=== PATIENT | male | born 1970 | race Caucasian/White ===

== ENCOUNTER → 2018-03-21 | Outpatient (CLI) | payer MEDICARE, OTHER ==
--- NOTE | 2018-03-21 13:22 | RAD ---
EXAM DESCRIPTION: Knee,Right 2 or More Views CLINICAL HISTORY: 47 years Male, PAIN IN RIGHT KNEE TECHNIQUE: 4 views of the right knee were performed. COMPARISON: None available. FINDINGS: The visualized bones appear well mineralized. No acute fracture or dislocation. Small suprapatellar joint effusion is noted. Mild medial tibiofemoral joint space narrowing. The soft tissues appear grossly unremarkable. IMPRESSION: Mild medial tibiofemoral joint space narrowing. Small suprapatellar joint effusion. Electronically signed by: Nancy Sharif MD 03/21/2018 1:20 PM CDT
--- NOTE | 2018-03-21 13:23 | RAD ---
EXAM DESCRIPTION: Pelvis CLINICAL HISTORY: 47 years Male, PAIN IN RIGHT HIP COMPARISON: None. TECHNIQUE: AP radiograph of the pelvis was performed. FINDINGS: The pelvic ring appears grossly intact on this single AP radiograph. No acute fracture or dislocation. Bilateral sacroiliac joints appear normal. Moderate osteoarthritis is noted in the left hip. The visualized lumbo-sacral spine demonstrates mild degenerative changes. IMPRESSION: Moderate left hip osteoarthritis. Electronically signed by: Nancy Sharif MD 03/21/2018 1:21 PM CDT
== END ==
LOC: RAD 09:00
PROVIDERS: ATTEND Orthopaedic Surgery
DX: M25.561 Pain in right knee (principal); M25.551 Pain in right hip; M16.12 Unilateral primary osteoarthritis, left hip; M25.461 Effusion, right knee

== ENCOUNTER 2020-03-08 04:19 | Emergency (ER) | payer MEDICARE, MEDICAID, OTHER ==
[2020-03-08 04:31] VITALS: TEMP 99
[2020-03-08] MEDS ORDERED: IBUPROFEN 200 MG TAB ONE ×2 (04:38→04:40)
[2020-03-08] MEDS ORDERED: IBUPROFEN 200 MG TAB PO ONE (04:38)
--- NOTE | 2020-03-08 04:42 | ED.PDOC ---
History of Present Illness - General Chief Complaint: General Stated Complaint: teeth hurt "bad", feels weak Time Seen by Provider: 03/08/20 04:26 Source: patient, other Exam Limitations: clinical condition - History of Present Illness Initial Comments: The patient is a 49-year-old male with chronic communication limitations presenting to the emergency room due to dental pain of what he reports a week's duration. Apparently the patient was written for clindamycin and ibuprofen. He is out of the ibuprofen and his teeth are starting to hurt some more. Patient does have several dental caries and at least one fractured tooth. No obvious dental abscess formation. He does have some mild cervical lymphadenopathy. No evidence of any clinical distress. There was some initial confusion as to whether he was here for high blood sugar however Accu-Chek with EMS was 180. The patient reports he does not check his blood sugars. He does take metformin. He is not having any abdominal pain or shortness of breath. No chest pain. No new confusion. I did discuss the patient with his nurse on the phone, whose name is Yumiko. She confirms that he had been on clindamycin and ibuprofen. She confirmed that he is allergic to Tylenol. Timing/Duration: 1 week Severity: moderate Improving Factors: nothing Worsening Factors: eating Associated Symptoms: denies symptoms Allergies/Adverse Reactions: Allergies Acetaminophen Allergy (Verified 03/08/20 04:29) Penicillin G Allergy (Verified 03/08/20 04:29) Home Medications: Ambulatory Orders Benztropine Mesylate [Cogentin] 1 mg PO TID 06/09/15 Pravastatin Sodium [Pravachol] 40 mg PO BEDTIME 06/09/15 Prazosin HCl [Prazosin Hydrochloride] 2 mg PO TID 06/09/15 Quetiapine Fumarate [Seroquel] 400 mg PO DAILY 06/09/15 Risperidone 1 mg PO BID 06/09/15 Ondansetron [Zofran Odt] 8 mg PO BID PRN #5 tab 06/17/15 ARIPiprazole [Abilify] 10 mg PO DAILY 03/06/16 Albuterol Inhaler [Ventolin Hfa Inhaler] 2 puff INH Q4HR 03/06/16 Benzonatate 200 mg PO TID 03/06/16 Fluticasone Propionate (Nasal) [Flonase] 2 puff NA DAILY 03/06/16 Ketoconazole (Topical) [Ketoconazole] 2 % EX ONCE 03/06/16 Magnesium Oxide 400 mg PO PRN 03/06/16 Meloxicam [Mobic] 15 mg PO DAILY 03/06/16 Metformin HCl [Metformin HCl ER] 500 mg PO DAILY 03/06/16 Simvastatin 40 mg PO DAILY 03/06/16 Ibuprofen 400 mg PO Q8HR PRN #20 tab 03/08/20 Review of Systems - Review of Systems Constitutional: States: no symptoms reported EENTM: States: see HPI Respiratory: States: no symptoms reported Cardiology: States: no symptoms reported Gastrointestinal/Abdominal: States: no symptoms reported Genitourinary: States: no symptoms reported Musculoskeletal: States: no symptoms reported Skin: States: no symptoms reported Neurological: States: see HPI Endocrine: States: no symptoms reported All other Systems: No Change from Baseline Past Medical History (General) - Patient Medical History Hx Seizures: - unknown Hx Stroke: - unknown Hx Dementia: - unknown Hx Asthma: - unknown Hx of COPD: - unknown Hx Congestive Heart Failure: - unknown Hx Hypertension: - unknown Hx Thyroid Disease: - unknown Hx Diabetes: Yes - takes metformin per EMS Hx Gastroesophageal Reflux: - unknown Hx Renal Disease: - unknown Hx Cancer: - unknown Hx of HIV: - unknown Hx Hepatitis C: - unknown Hx MRSA: - unknown Surgical History: noncontributory - Vaccination History Hx Tetanus, Diphtheria Vaccination: - unknown Hx Influenza Vaccination: - unknown Hx Pneumococcal Vaccination: - unknown Immunizations Up to Date: - unknown - Social History Hx Alcohol Use: - unknown Hx Substance Use: - unknown Hx Substance Use Treatment: - unknown Hx Depression: - unknown Family Medical History - Family History Father Living Status: Still Living Hx Family Diabetes: Yes Physical Exam - Physical Exam General Appearance: Alert, Comfortable, No apparent distress Eye Exam: bilateral normal - He does require glasses. Ears, Nose, Throat: hearing grossly normal, other - See history of present illness. No obvious abscess. No facial tenderness. No swelling. Jaw occlusion appears fairly symmetrical. No pain over bilateral TMJ. No evidence of acute trauma. Neck: non-tender, supple Respiratory: lungs clear, normal breath sounds, no respiratory distress, no accessory muscle use Cardiovascular/Chest: normal peripheral pulses, other - Regular rate Peripheral Pulses: radial,right: 2+, radial,left: 2+ Gastrointestinal/Abdominal: non tender - Mildly obese, soft Rectal Exam: deferred Back Exam: no vertebral tenderness Extremity: no pedal edema, no calf tenderness, normal capillary refill Neurologic: alert, normal mood/affect - Patient is apparently at his baseline mental status., oriented x 3 Skin Exam: normal color - Numerous tattoos Comments: Vital Signs - 24 hr 03/08/20 03/08/20 04:20 04:25 Temperature 99.0 F 99 F Pulse Rate [ 87 left] Pulse Rate [ 89 monitor] Respiratory 18 16 Rate Blood Pressure 129/66 [Left Arm] Blood Pressure 129/65 [left] O2 Sat by Pulse 98 97 Oximetry Progress - Progress Progress: 03/08/20 04:44 The patient is a 49-year-old male presented emergency room secondary to dental pain. He has apparently been out of his ibuprofen for about a day and his teeth are back to bothering him. No evidence of any grisel overt abscess formation. The patient has recently been on antibiotics for his teeth. The patient will be written for ibuprofen 3 times a day for the next week as needed. He obviously does need to follow-up with a dentist. Keep routine follow-up with his primary care doctor and his nursing care team. Blood sugar was very mildly elevated at 176 tonight. Blood sugars do need to be followed as an outpatient. ER warnings are given. [email or web address] [id number] Departure - Departure Clinical Impression: Pain due to dental caries Disposition: Discharge to Home or Self Care Condition: Fair Departure Forms: ED Discharge - Pt. Copy, Patient Portal Self Enrollment Diet: diabetic diet Activity: increase activity as tolerated Referrals: Matthew Dover MD [Primary Care Provider] - 1-2 Weeks Prescriptions: Ibuprofen 400 mg PO Q8HR PRN #20 tab PRN Reason: Moderate Pain Home Medications: Ambulatory Orders Benztropine Mesylate [Cogentin] 1 mg PO TID 06/09/15 Pravastatin Sodium [Pravachol] 40 mg PO BEDTIME 06/09/15 Prazosin HCl [Prazosin Hydrochloride] 2 mg PO TID 06/09/15 Quetiapine Fumarate [Seroquel] 400 mg PO DAILY 06/09/15 Risperidone 1 mg PO BID 06/09/15 Ondansetron [Zofran Odt] 8 mg PO BID PRN #5 tab 06/17/15 ARIPiprazole [Abilify] 10 mg PO DAILY 03/06/16 Albuterol Inhaler [Ventolin Hfa Inhaler] 2 puff INH Q4HR 03/06/16 Benzonatate 200 mg PO TID 03/06/16 Fluticasone Propionate (Nasal) [Flonase] 2 puff NA DAILY 03/06/16 Ketoconazole (Topical) [Ketoconazole] 2 % EX ONCE 03/06/16 Magnesium Oxide 400 mg PO PRN 03/06/16 Meloxicam [Mobic] 15 mg PO DAILY 03/06/16 Metformin HCl [Metformin HCl ER] 500 mg PO DAILY 03/06/16 Simvastatin 40 mg PO DAILY 03/06/16 Ibuprofen 400 mg PO Q8HR PRN #20 tab 03/08/20 Additional Instructions: The patient is a 49-year-old male presented emergency room secondary to dental pain. He has apparently been out of his ibuprofen for about a day and his teeth are back to bothering him. No evidence of any grisel overt abscess formation. The patient has recently been on antibiotics for his teeth. The patient will be written for ibuprofen 3 times a day for the next week as needed. He does need to take these with a little bit of food to prevent stomach upset. He obviously does need to follow-up with a dentist. Keep routine follow-up with his primary care doctor and his nursing care team. Blood sugar was very mildly elevated at 176 tonight. Blood sugars do need to be followed as an outpatient. ER warnings are given.
[2020-03-08 05:29] VITALS: BP 116/57; O2SAT 96
== END 2020-03-08 05:10 | disposition home or self-care (01) ==
LOC: ER 04:19
DX: K02.9 Dental caries, unspecified (principal); K08.89 Other specified disorders of teeth and supporting structures; E11.9 Type 2 diabetes mellitus without complications; Z79.899 Other long term (current) drug therapy

== ENCOUNTER 2020-05-29 21:01 | Emergency (ER) | payer MEDICARE, MEDICAID, OTHER ==
--- NOTE | 2020-05-29 21:02 | ED.PDOC ---
History of Present Illness - General Time Seen by Provider: 05/29/20 21:01 - History of Present Illness Initial Comments: 50 yo male was walking down stairs, misstep two steps before bottom and fell backwards and hit his head. unsure if he had LOC. Has special needs, lives alone, but has nursing care. denies dizziness prior to falling. states he hurts all over. Allergies/Adverse Reactions: Allergies Acetaminophen Allergy (Verified 03/08/20 04:29) Penicillin G Allergy (Verified 03/08/20 04:29) Home Medications: Ambulatory Orders Benztropine Mesylate [Cogentin] 1 mg PO TID 06/09/15 Pravastatin Sodium [Pravachol] 40 mg PO BEDTIME 06/09/15 Prazosin HCl [Prazosin Hydrochloride] 2 mg PO TID 06/09/15 Quetiapine Fumarate [Seroquel] 400 mg PO DAILY 06/09/15 Risperidone 1 mg PO BID 06/09/15 Ondansetron [Zofran Odt] 8 mg PO BID PRN #5 tab 06/17/15 ARIPiprazole [Abilify] 10 mg PO DAILY 03/06/16 Albuterol Inhaler [Ventolin Hfa Inhaler] 2 puff INH Q4HR 03/06/16 Benzonatate 200 mg PO TID 03/06/16 Fluticasone Propionate (Nasal) [Flonase] 2 puff NA DAILY 03/06/16 Ketoconazole (Topical) [Ketoconazole] 2 % EX ONCE 03/06/16 Magnesium Oxide 400 mg PO PRN 03/06/16 Meloxicam [Mobic] 15 mg PO DAILY 03/06/16 Metformin HCl [Metformin HCl ER] 500 mg PO DAILY 03/06/16 Simvastatin 40 mg PO DAILY 03/06/16 Ibuprofen 400 mg PO Q8HR PRN #20 tab 03/08/20 Ibuprofen 600 mg PO QID PRN #30 tab 05/29/20 Magnesium Oxide [Mag-Ox Tab] 400 mg PO DAILY PRN #14 tab 05/29/20 Review of Systems - Review of Systems Constitutional: Denies: fever, malaise, weakness EENTM: Denies: eye pain, blurred vision, ear discharge, throat pain, mouth pain Respiratory: States: short of breath. Denies: cough, stridor, wheezing Cardiology: Denies: chest pain, edema, palpitations, syncope Gastrointestinal/Abdominal: Denies: abdominal pain, constipation, diarrhea, n ausea, vomiting Genitourinary: Denies: dysuria, frequency Musculoskeletal: States: muscle pain, neck pain Skin: Denies: rash Neurological: States: headache. Denies: numbness, paresthesia, seizure, tingling, tremors, weakness Endocrine: Denies: unexplained weight gain, unexplained weight loss Hematologic/Lymphatic: Denies: easy bleeding, easy bruising Past Medical History (General) - Patient Medical History Hx Seizures: - unknown Hx Stroke: - unknown Hx Dementia: - unknown Hx Asthma: - unknown Hx of COPD: - unknown Hx Congestive Heart Failure: - unknown Hx Hypertension: - unknown Hx Thyroid Disease: - unknown Hx Diabetes: Yes - takes metformin per EMS Hx Gastroesophageal Reflux: - unknown Hx Renal Disease: - unknown Hx Cancer: - unknown Hx of HIV: - unknown Hx Hepatitis C: - unknown Hx MRSA: - unknown - Vaccination History Hx Tetanus, Diphtheria Vaccination: - unknown Hx Influenza Vaccination: - unknown Hx Pneumococcal Vaccination: - unknown - Social History Hx Alcohol Use: - unknown Hx Substance Use: - unknown Hx Substance Use Treatment: - unknown Hx Depression: - unknown Family Medical History - Family History Father Living Status: Still Living Hx Family Diabetes: Yes Physical Exam - Physical Exam General Appearance: Alert, Comfortable, No apparent distress, Well Developed, Well Groomed, Well Hydrated, Well Nourished Eye Exam: bilateral normal Ears, Nose, Throat: hearing grossly normal, normal ENT inspection, normal pharynx, other - TM without hemotympanum. Facial bones without deformities or tenderness. No nasal septal hematoma. neck without No discolorations or edema. no midline tenderness, normal rom Neck: non-tender, full range of motion, supple, normal inspection Respiratory: chest non-tender, lungs clear, normal breath sounds, no respiratory distress, no accessory muscle use Cardiovascular/Chest: normal peripheral pulses, regular rate, rhythm, no edema, no gallop, no JVD, no murmur, other - No abrasions or ecchymosis. Chest symmetric with respirations. No chest wall tenderness. No crepitus. No step offs. Peripheral Pulses: radial,right: 2+, radial,left: 2+, dorsalis pedis,right: 2+, dorsalis pedis,left: 2+ Gastrointestinal/Abdominal: normal bowel sounds, non tender, soft, no organomegaly, no pulsatile mass Rectal Exam: deferred Back Exam: normal inspection, no CVA tenderness, no vertebral tenderness Extremity: normal range of motion, non-tender, normal inspection, no pedal edema, no calf tenderness, normal capillary refill Neurologic: no motor/sensory deficits, alert, normal mood/affect, oriented x 3 Skin Exam: normal color, warm/dry Progress - Progress Progress: 05/29/20 22:55 no external evidence of trauma. will give tramadol for pain. CT head and neck as well as CXR for shortness of breath. Patient is resting comfortably with no evidence of dyspnea or hypoxia. EKG shows HR 91, nsr, normal intervals, nonspecific st changes in septal leads. no stemi. Blood work unremarkable except for elevated glucose, this is most likely secondary to his psychiatric medications. Encouraged patient to follow up with his primary care physician. CT head and neck negative for pathology. CXR no acute pathology noted. The data reviewed when caring for this patient included: nurse notes, prior records, etc. The history and assessments from nurses notes were reviewed and considered, and the patient's home medication list was also reviewed and considered. My assessment and the results of testing completed here in the ED were discussed with the patient. All questions were answered, and he express understanding of my assessment and the plan. He have been instructed to return if their symptoms worsen, and have been asked to follow up with their primary care physician to recheck today's presenting complaint. Return precautions given. I have reviewed medication, benefits, alternatives and side effects. VSS, stable gait, patient was dischaged home in stable condition. Alessia Wise DO #[id number] 05/29/20 21:15 EKG STAT Laboratory Results WBC 6.6 K/mm3 (4.8-10.8) 05/29/20 21:25 RBC 4.21 M/mm3 (4.70-6.10) L 05/29/20 21:25 Hgb 12.2 gm/dL (14.0-18.0) L 05/29/20 21:25 Hct 36.4 % (42.0-52.0) L 05/29/20 21:25 MCV 86.5 fl (80.0-94.0) 05/29/20 21:25 MCH 29.0 pg (27.0-31.0) 05/29/20 21:25 MCHC 33.5 g/dL (33.0-37.0) 05/29/20 21:25 RDW 14.0 % (11.5-14.5) 05/29/20 21:25 Plt Count 181 K/mm3 (130-400) 05/29/20 21:25 MPV 8.8 fl (7.40-10.4) 05/29/20 21:25 Absolute Neuts (auto) 4.30 K/uL (1.8-6.8) 05/29/20 21:25 Absolute Lymphs (auto) 1.60 K/uL (1.0-3.4) 05/29/20:25 Absolute Monos (auto) 0.50 K/uL (0.2-0.8) 05/29/20 21:25 Absolute Eos (auto) 0.20 K/uL (0.0-0.4) 05/29/20:25 Absolute Basos (auto) 0.00 K/uL (0.0-0.1) 05/29/20 21:25 Neutrophils % 64.9 % (42.0-78.0) 05/29/20 21:25 Lymphocytes % 24.0 % (20.0-50.0) 05/29/20 21:25 Monocytes % 8.2 % (2.0-9.0) 05/29/20 21:25 Eosinophils % 2.7 % (1.0-5.0) 05/29/20:25 Basophils % 0.2 % (0.0-2.0) 05/29/20 21:25 Sodium 139 mmol/L (135-145) 05/29/20 21:25 Potassium 4.2 mmol/L (3.6-5.0) 05/29/20 21:25 Chloride 103 mmol/L (101-111) 05/29/20 21:25 Carbon Dioxide 26 mmol/L (21-31) 05/29/20 21:25 Anion Gap 14.2 (12-18) 05/29/20 21:25 BUN 13 mg/dL (7-18) 05/29/20 21:25 Creatinine 0.97 mg/dL (0.6-1.3) 05/29/20 21:25 BUN/Creatinine Ratio 13.4 (10-20) 05/29/20 21:25 Random Glucose 205 mg/dL (70-105) H 05/29/20 21:25 Serum Osmolality 283.6 mOsm/L (275-295) 05/29/20 21:25 Calcium 8.6 mg/dL (8.4-10.2) 05/29/20 21:25 Total Bilirubin 0.4 mg/dL (0.2-1.0) 05/29/20 21:25 AST 19 IU/L (10-42) 05/29/20 21:25 ALT 23 IU/L (10-60) 05/29/20 21:25 Alkaline Phosphatase 55 IU/L (42-121) 05/29/20 21:25 Troponin I < 0.02 ng/mL (0.01-0.05) 05/29/20 21:25 Serum Total Protein 6.5 gm/dL (6.4-8.2) 05/29/20 21:25 Albumin 3.9 g/dl (3.2-5.5) 05/29/20 21:25 Globulin 2.6 gm/dL (2.3-3.5) 05/29/20 21:25 Albumin/Globulin Ratio 1.5 (1.1-1.9) 05/29/20 21:25 Urine Color Yellow (Yellow) 05/29/20 22:22 Urine Appearance Clear (Clear) 05/29/20 22:22 Urine pH 6.0 (4.5-7.8) 05/29/20 22:22 Ur Specific [place] 1.020 (1.005-1.030) 05/29/20 22:22 Urine Protein Negative mg/dL 05/29/20 22:22 Urine Glucose (UA) 500 mg/dL (Negative) H 05/29/20 22:22 Urine Ketones Negative mg/dL (NEGATIVE) 05/29/20 22:22 Urine Blood Negative (Negative) 05/29/20 22:22 Urine Nitrite Negative 05/29/20 22:22 Urine Bilirubin Negative (NEGATIVE) 05/29/20 22:22 Urine Urobilinogen 0.2 mg/dL (0.2-1.0) 05/29/20 22:22 Ur Leukocyte Esterase Negative (Negative) 05/29/20 22:22 Urine RBC 0 /hpf 05/29/20 22:22 Urine WBC 0 /hpf 05/29/20 22:22 Ur Epithelial Cells 0 /hpf 05/29/20 22:22 Urine Bacteria 0 05/29/20 22:22 05/29/20 22:59 Departure - Departure Clinical Impression: Hyperglycemia Fall Qualifiers: Encounter type: initial encounter Qualified Code(s): W19.XXXA - Unspecified fall, initial encounter ICD-10 Supporting Text: muscle pain. Time of Disposition: 22:45 Disposition: Discharge to Home or Self Care Instructions: Concussion, Adult (DC), Hyperglycemia, Adult (DC), Preventing Falls Diet: diabetic diet Activity: increase activity as tolerated Referrals: Matthew Dover MD [Primary Care Provider] - 1-2 Days Prescriptions: Ibuprofen 600 mg PO QID PRN #30 tab PRN Reason: Pain Magnesium Oxide [Mag-Ox Tab] 400 mg PO DAILY PRN #14 tab PRN Reason: Muscle Spasms Home Medications: Ambulatory Orders Benztropine Mesylate [Cogentin] 1 mg PO TID 06/09/15 Pravastatin Sodium [Pravachol] 40 mg PO BEDTIME 06/09/15 Prazosin HCl [Prazosin Hydrochloride] 2 mg PO TID 06/09/15 Quetiapine Fumarate [Seroquel] 400 mg PO DAILY 06/09/15 Risperidone 1 mg PO BID 06/09/15 Ondansetron [Zofran Odt] 8 mg PO BID PRN #5 tab 06/17/15 ARIPiprazole [Abilify] 10 mg PO DAILY 03/06/16 Albuterol Inhaler [Ventolin Hfa Inhaler] 2 puff INH Q4HR 03/06/16 Benzonatate 200 mg PO TID 03/06/16 Fluticasone Propionate (Nasal) [Flonase] 2 puff NA DAILY 03/06/16 Ketoconazole (Topical) [Ketoconazole] 2 % EX ONCE 03/06/16 Magnesium Oxide 400 mg PO PRN 03/06/16 Meloxicam [Mobic] 15 mg PO DAILY 03/06/16 Metformin HCl [Metformin HCl ER] 500 mg PO DAILY 03/06/16 Simvastatin 40 mg PO DAILY 03/06/16 Ibuprofen 400 mg PO Q8HR PRN #20 tab 03/08/20 Ibuprofen 600 mg PO QID PRN #30 tab 05/29/20 Magnesium Oxide [Mag-Ox Tab] 400 mg PO DAILY PRN #14 tab 05/29/20
[2020-05-29] MEDS ORDERED: KETOROLAC TROMETHAMINE INJ 30 MG/ML VIAL IV ONE (22:02)
[2020-05-29 22:32] VITALS: O2SAT 96
--- NOTE | 2020-05-29 22:32 | CT ---
EXAM: CT Head and Cervical Spine Without Intravenous Contrast CLINICAL HISTORY: The patient is 50 years old and is Male; fall TECHNIQUE: Axial computed tomography images of the head/brain and cervical spine without intravenous contrast. Sagittal and coronal reformatted images were created and reviewed. This CT exam was performed using one or more of the following dose reduction techniques: automated exposure control, adjustment of the mA and/or kV according to patient size, and/or use of iterative reconstruction technique. COMPARISON: No relevant prior studies available. FINDINGS: Brain: Unremarkable. No hemorrhage. No significant white matter disease. No edema. Ventricles: Unremarkable. No ventriculomegaly. Skull: No acute fracture. Sinuses: Unremarkable as visualized. No acute sinusitis. Mastoid air cells: Unremarkable as visualized. No mastoid effusion. Vertebrae: Mild disc height loss and endplate spurring at C5-C6 and C6/7 No acute fracture. Normal alignment. Soft tissues: Unremarkable. IMPRESSION: 1. No acute intracranial findings. 2. No acute spine abnormality. No fracture or subluxation. Electronically signed by: Kristian Robles MD 05/29/2020 10:31 PM CDT
--- NOTE | 2020-05-29 22:39 | RAD ---
EXAM DESCRIPTION: Chest,2 Views CLINICAL HISTORY:50 years Male, fall, cp Comparison: None FINDINGS: No focal lung consolidation. No pleural effusion. No pneumothorax. Cardiomediastinal silhouette is within normal limits. No acute osseous abnormality. IMPRESSION: No acute cardiopulmonary disease. Electronically signed by: Jordan Burroughs DO 05/29/2020 10:37 PM CDT
[2020-05-29] MEDS ORDERED: MAGNESIUM OXIDE 400 MG TAB ONE (23:14)
[2020-05-30 00:42] VITALS: BP 131/72; TEMP 97.9
[2020-05-30] MEDS ORDERED: MAGNESIUM OXIDE 400 MG TAB PO ONE (22:50)
== END 2020-05-30 00:42 | disposition home or self-care (01) ==
LOC: ER 21:01
DX: Z04.3 Encounter for examination and observation following other accident (principal); E11.9 Type 2 diabetes mellitus without complications; M54.2 Cervicalgia; R51 Headache; M79.10 Myalgia, unspecified site; R06.02 Shortness of breath; Z79.84 Long term (current) use of oral hypoglycemic drugs; Z79.899 Other long term (current) drug therapy; Z88.6 Allergy status to analgesic agent; Z88.0 Allergy status to penicillin; W10.9XXA Fall (on) (from) unspecified stairs and steps, initial encounter; Y92.9 Unspecified place or not applicable
CPT/HCPCS: 70450; 71046; 72125; 80053; 81001; 84484; 85025; 93005; J1885

== ENCOUNTER → 2020-06-21 | Outpatient (CLI) | payer MEDICARE, MEDICAID, OTHER | LOC: YCFC.O 15:46 | PROVIDERS: ATTEND Family Medicine | DX: Z20.828 Contact with and (suspected) exposure to other viral communicable diseases (principal) ==

== ENCOUNTER → 2020-07-29 | Outpatient (CLI) | payer MEDICARE, MEDICAID, OTHER | LOC: YCFC.O 11:17 | PROVIDERS: ATTEND Family Medicine | DX: Z11.59 Encounter for screening for other viral diseases (principal); R07.0 Pain in throat ==

== ENCOUNTER → 2020-08-27 | Outpatient (CLI) | payer MEDICARE, MEDICAID, OTHER | LOC: YCFC.O 11:05 | PROVIDERS: ATTEND Nurse Practitioner | DX: I10 Essential (primary) hypertension (principal); E03.9 Hypothyroidism, unspecified; E11.65 Type 2 diabetes mellitus with hyperglycemia; E78.5 Hyperlipidemia, unspecified ==

== ENCOUNTER → 2020-09-14 | Outpatient (CLI) | payer MEDICARE, MEDICAID, OTHER ==
--- NOTE | 2020-09-14 18:06 | CT ---
EXAM: CT Abdomen and Pelvis With Intravenous Contrast CLINICAL HISTORY: The patient is 50 years old and is Male; ABD PAIN TECHNIQUE: Axial computed tomography images of the abdomen and pelvis with intravenous contrast. Sagittal and coronal reformatted images were created and reviewed. This CT exam was performed using one or more of the following dose reduction techniques: automated exposure control, adjustment of the mA and/or kV according to patient size, and/or use of iterative reconstruction technique. COMPARISON: June 17, 2015 FINDINGS: Lung bases: Trace bilateral pleural effusions. ABDOMEN: Liver: Unremarkable. No mass. Gallbladder and bile ducts: Cholecystectomy No ductal dilation. Pancreas: Unremarkable. No mass. No ductal dilation. Spleen: Unremarkable. No splenomegaly. Adrenals: Unremarkable. No mass. Kidneys and ureters: Bilateral renal cysts No hydronephrosis. No nephrolithiasis. Stomach and bowel: Unremarkable. No obstruction. No mucosal thickening. PELVIS: Appendix: No findings to suggest acute appendicitis. Bladder: Unremarkable. No mass. Reproductive: Unremarkable as visualized. ABDOMEN and PELVIS: Intraperitoneal space: Unremarkable. No free air. No significant fluid collection. Bones/joints: Chronic bilateral L5 pars defects. No acute fracture. No dislocation. Soft tissues: Unremarkable. Vasculature: Unremarkable. No abdominal aortic aneurysm. Lymph nodes: Unremarkable. No enlarged lymph nodes. IMPRESSION: 1. No acute intra-abdominal abnormality. 2. Trace bilateral pleural effusions. Electronically signed by: Kristian Robles MD 09/14/2020 6:04 PM [employer]MENT [employer]ER
== END ==
LOC: LAB.O 16:30
PROVIDERS: ATTEND Family Medicine
DX: R19.7 Diarrhea, unspecified (principal); R10.9 Unspecified abdominal pain; J90 Pleural effusion, not elsewhere classified

== ENCOUNTER 2020-09-15 02:05 | Emergency (ER) | payer MEDICARE, MEDICAID, OTHER ==
[2020-09-15] MEDS ORDERED: SODIUM CHLORIDE 0.9% 1000ML 1,000 ML IVS PRN (02:16)
[2020-09-15 03:10] VITALS: TEMP 97.5; O2SAT 96
[2020-09-15] MEDS ORDERED: ALUM & MAG HYDROX-SIMETHICONE 30 ML, LIDOCAINE VISCOUS 2% 15 ML PO ONE ×2 (03:47)
--- NOTE | 2020-09-15 03:48 | ED.PDOC ---
History of Present Illness - General Chief Complaint: Abdominal Pain Stated Complaint: abd pain Time Seen by Provider: 09/15/20 03:17 Information Source: patient Exam Limitations: language barrier - [employer]NDROME, HIS SPEECH IS INARTICULATE, DIFFICULT TO DISCERN. - History of Present Illness Abdominal Pain Onset Location: generalized abdomen Pain Radiation: no radiation Quality: severe Timing/Duration: intermittent Improving Factors: nothing Worsening Factors: nothing Associated Symptoms: denies symptoms Review of Systems - Review of Systems Constitutional: States: no symptoms reported EENTM: States: no symptoms reported Respiratory: States: no symptoms reported Cardiology: States: no symptoms reported Gastrointestinal/Abdominal: States: abdominal pain. Denies: constipation, diarrhea, nausea, vomiting Genitourinary: States: no symptoms reported Musculoskeletal: States: no symptoms reported Skin: States: no symptoms reported Neurological: States: no symptoms reported Endocrine: States: no symptoms reported Hematologic/Lymphatic: States: no symptoms reported All other Systems: Reviewed and Negative Past Medical History (General) - Patient Medical History Hx Seizures: - unknown Hx Stroke: - unknown Hx Dementia: - unknown Hx Asthma: - unknown Hx of COPD: - unknown Hx Cardiac Disorders: Yes Hx Congestive Heart Failure: - unknown Hx Pacemaker: No Hx Hypertension: Yes - unknown Hx Thyroid Disease: - unknown Hx Diabetes: Yes - takes metformin per EMS Hx Gastroesophageal Reflux: Yes - unknown Hx Renal Disease: - unknown Hx Cancer: - unknown Hx of HIV: - unknown Hx Hepatitis C: - unknown Hx MRSA: - unknown Surgical History: other - Vaccination History Hx Tetanus, Diphtheria Vaccination: No Hx Influenza Vaccination: No Hx Pneumococcal Vaccination: No - Social History Hx Tobacco Use: No Hx Chewing Tobacco Use: No Hx Alcohol Use: No Hx Substance Use: - unknown Hx Substance Use Treatment: - unknown Hx Depression: - unknown Hx Physical Abuse: No Hx Emotional Abuse: No Hx Suspected Abuse: No Family Medical History - Family History Father Living Status: Still Living Hx Family Diabetes: Yes Physical Exam - Physical Exam General Appearance: Alert, Other - UNCOMFORTABLE Eyes, Ears, Nose, Throat Exam: normal ENT inspection, TMs normal Neck: non-tender, full range of motion Respiratory: lungs clear, normal breath sounds Cardiovascular/Chest: regular rate, rhythm, no murmur Peripheral Pulses: No deficit Gastrointestinal/Abdominal: normal bowel sounds, soft, no organomegaly, no pulsatile mass, tenderness - X ALL 4 QUADRANTS, NOT FOCAL. Rectal Exam: deferred Back Exam: normal inspection, no CVA tenderness Extremity: normal range of motion, normal inspection Neurologic: no motor/sensory deficits, alert Skin Exam: normal color, warm/dry Lymphatic: no adenopathy Progress - Results/Orders Results/Orders: W/U NEG FOR ANY EXPLANATION OF ABD PAIN. CT SEP 14 FOR THE SAME ABD PAIN (ORDERED BY PCP) = NEGATIVE. NO APPENDICITIS, NO CHOLECYSTITIS. CBC, CMP UNREMARKABLE. RACHELL/LIPASE NEG THUS NOT PANCREATITIS. UA NEG EXCEPT GLUCOSE. NO UTI. GIVING GI COCKTAIL TO SEE IF IMPROVES PAIN, IN WHICH CASE WILL EMPIRICALLY TREAT GERD. VSS, SAFE FOR DC TO HOME. F/U WITH PCP, MAYBE SURGERY OR GI REFERRAL FOR FURTHER EVALUATION AND TESTING TO DETERMINE THE ETX. Departure - Departure Clinical Impression: Abdominal pain, acute, generalized Disposition: Discharge to Home or Self Care Condition: Good Departure Forms: ED Discharge - Pt. Copy, Patient Portal Self Enrollment Instructions: DI for Abdominal Pain-Adult, Stomach Ache and Stomach Upset Diet: resume usual diet Activity: increase activity as tolerated Referrals: Justina Connor MD [Primary Care Provider] - 1-2 Weeks Home Medications: Ambulatory Orders Benztropine Mesylate [Cogentin] 1 mg PO TID 06/09/15 Pravastatin Sodium [Pravachol] 40 mg PO BEDTIME 06/09/15 Prazosin HCl [Prazosin Hydrochloride] 2 mg PO TID 06/09/15 Quetiapine Fumarate [Seroquel] 400 mg PO DAILY 06/09/15 Risperidone 1 mg PO BID 06/09/15 Ondansetron [Zofran Odt] 8 mg PO BID PRN #5 tab 06/17/15 ARIPiprazole [Abilify] 10 mg PO DAILY 03/06/16 Albuterol Inhaler [Ventolin Hfa Inhaler] 2 puff INH Q4HR 03/06/16 Benzonatate 200 mg PO TID 03/06/16 Fluticasone Propionate (Nasal) [Flonase] 2 puff NA DAILY 03/06/16 Ketoconazole (Topical) [Ketoconazole] 2 % EX ONCE 03/06/16 Magnesium Oxide 400 mg PO PRN 03/06/16 Meloxicam [Mobic] 15 mg PO DAILY 03/06/16 Metformin HCl [Metformin HCl ER] 500 mg PO DAILY 03/06/16 Simvastatin 40 mg PO DAILY 03/06/16 Ibuprofen 400 mg PO Q8HR PRN #20 tab 03/08/20 Ibuprofen 600 mg PO QID PRN #30 tab 05/29/20 Magnesium Oxide [Mag-Ox Tab] 400 mg PO DAILY PRN #14 tab 05/29/20 Additional Instructions: All of the tests were normal and did not show an explanation for your abdominal pain. Please see your regular doctor and talk about trying medicine for GERD (heart burn). You might also need to see a GI doctor for more testing to determine what is causing the abdominal pain.
[2020-09-15] MEDS ORDERED: HYDROmorphone HCL INJ 2 MG/ML VIAL IV ONE (03:51)
[2020-09-15 04:10] VITALS: BP 128/78
== END 2020-09-15 04:15 | disposition home or self-care (01) ==
LOC: ER 02:05
DX: R10.84 Generalized abdominal pain (principal); Q90.9 Down syndrome, unspecified; E11.9 Type 2 diabetes mellitus without complications; I10 Essential (primary) hypertension; K21.9 Gastro-esophageal reflux disease without esophagitis; I51.9 Heart disease, unspecified; Z79.84 Long term (current) use of oral hypoglycemic drugs
CPT/HCPCS: 80053; 80076; 81001; 82150; 83690; 85025; J1170; J7030

== ENCOUNTER → 2020-09-27 | Outpatient (CLI) | payer MEDICARE, MEDICAID, OTHER | LOC: YCFC.O 14:19 | PROVIDERS: ATTEND Nurse Practitioner | DX: Z20.828 Contact with and (suspected) exposure to other viral communicable diseases (principal) ==

== ENCOUNTER 2020-09-30 21:28 | Inpatient (IN) | payer MEDICARE, MEDICAID, OTHER ==
[2020-09-30] MEDS ORDERED: DEXAMETHASONE INJ 4 MG/ML VIAL IV ONE (21:50)
[2020-09-30] MEDS ORDERED: IPRATROPIUM/ALBUTEROL 3 ML VIAL NEB ONE (21:50)
[2020-09-30] MEDS ORDERED: REMDESIVIR 200 MG in SODIUM CHLORIDE 0.9% 250ML 250 ML IVPB ONE (21:50)
[2020-09-30] MEDS ORDERED: cefTRIAXone SODIUM 1 GM in SODIUM CHL 0.9% 50ML MIN-BAG+ 50 ML IVPB ONE (21:50)
[2020-09-30] MEDS ORDERED: AZITHROMYCIN IV 500 MG in SODIUM CHLORIDE 0.9% 250ML 250 ML IVPB ONE (21:50)
--- NOTE | 2020-09-30 22:44 | RAD ---
EXAM DESCRIPTION: Chest,1 View 09/30/2020 10:41 PM PAYROLL ASSOCIATE CLINICAL HISTORY: 50 years, Male, covid hypoxia COMPARISON: 05/29/2020 FINDINGS: Single view of the chest was obtained portable. Prior films were compared. Lung volume is decreased. The heart is not enlarged. The thoracic aorta is unremarkable. Bilateral alveolar and interstitial opacities within the mid/lower lung zones could correspond to viral pneumonia/Covid 19 pneumonia. No significant pleural effusions. The rest of the soft tissue and bony structures demonstrate to be unremarkable. IMPRESSION: DECREASED LUNG VOLUME. MODERATE BILATERAL INTERSTITIAL AND MIXED ALVEOLAR OPACITIES SUSPICIOUS FOR VIRAL PNEUMONIA/COVID 19 PNEUMONIA. Electronically signed by: Gabe Montana MD 09/30/2020 10:42 PM PAYROLL ASSOCIATE
--- NOTE | 2020-09-30 23:56 | ED.PDOC ---
History of Present Illness - General Chief Complaint: Respiratory Problem Stated Complaint: hard to breathe Time Seen by Provider: 09/30/20 21:42 Source: patient Exam Limitations: clinical condition, language barrier - History of Present Illness Initial Comments: The patient is a 50-year-old male with some form of cognitive deficit , the origin of which I am not certain and the patient cannot tell me, presenting secondary to increased shortness of breath and cough since around Sunday. The patient was diagnosed with coronavirus on Sunday. He reports he was not started on any medications for it at that time. He apparently does have some form of reactive airway as he has a previous prescription for albuterol. He is apparently a type II diabetic. He reports that he was becoming more short of breath so he called EMS. The patient apparently does not manage his own medications, but does apparently have home health of which he is unable to name any of the nurses or service. He apparently does see Dr. Terri Uriarte as his primary care doctor. He is pleasant and cooperative but communication is severely limited. He thinks he has had fevers but is unsure. He has had a runny nose and something of a sore throat. He has had a few days of diarrhea but no nausea or vomiting. No abdominal pain. No new back pain. No significant headache currently. Timing/Duration: other - 5 days Severity: moderate Improving Factors: nothing Worsening Factors: nothing Associated Symptoms: cough, fever/chills, malaise, shortness of breath Allergies/Adverse Reactions: Allergies Acetaminophen Allergy (Verified 09/15/20 02:16) Penicillin G Allergy (Verified 09/15/20 02:16) Home Medications: Ambulatory Orders Benztropine Mesylate [Cogentin] 1 mg PO TID 06/09/15 Pravastatin Sodium [Pravachol] 40 mg PO BEDTIME 06/09/15 Prazosin HCl [Prazosin Hydrochloride] 2 mg PO TID 06/09/15 Quetiapine Fumarate [Seroquel] 400 mg PO DAILY 06/09/15 Risperidone 1 mg PO BID 06/09/15 Ondansetron [Zofran Odt] 8 mg PO BID PRN #5 tab 06/17/15 ARIPiprazole [Abilify] 10 mg PO DAILY 03/06/16 Albuterol Inhaler [Ventolin Hfa Inhaler] 2 puff INH Q4HR 03/06/16 Benzonatate 200 mg PO TID 03/06/16 Fluticasone Propionate (Nasal) [Flonase] 2 puff NA DAILY 03/06/16 Ketoconazole (Topical) [Ketoconazole] 2 % EX ONCE 03/06/16 Magnesium Oxide 400 mg PO PRN 03/06/16 Meloxicam [Mobic] 15 mg PO DAILY 03/06/16 Metformin HCl [Metformin HCl ER] 500 mg PO DAILY 03/06/16 Simvastatin 40 mg PO DAILY 03/06/16 Ibuprofen 400 mg PO Q8HR PRN #20 tab 03/08/20 Ibuprofen 600 mg PO QID PRN #30 tab 05/29/20 Magnesium Oxide [Mag-Ox Tab] 400 mg PO DAILY PRN #14 tab 05/29/20 Review of Systems - Review of Systems Constitutional: States: fever, malaise EENTM: States: nose congestion, throat pain Respiratory: States: cough, short of breath Cardiology: States: no symptoms reported Gastrointestinal/Abdominal: States: diarrhea Genitourinary: States: no symptoms reported Musculoskeletal: States: no symptoms reported Skin: States: no symptoms reported Neurological: States: see HPI - The patient is ambulatory and apparently functions within his own household fairly well on his own. Endocrine: States: no symptoms reported All other Systems: Reviewed and Negative Past Medical History (General) - Patient Medical History Hx Seizures: - unknown Hx Stroke: - unknown Hx Dementia: - unknown Hx Asthma: - unknown Hx of COPD: - unknown Hx Cardiac Disorders: Yes Hx Congestive Heart Failure: - unknown Hx Pacemaker: No Hx Hypertension: Yes - unknown Hx Thyroid Disease: - unknown Hx Diabetes: Yes - takes metformin per EMS Hx Gastroesophageal Reflux: Yes - unknown Hx Renal Disease: - unknown Hx Cancer: - unknown Hx of HIV: - unknown Hx Hepatitis C: - unknown Hx MRSA: - unknown Surgical History: cholecystectomy - Vaccination History Hx Tetanus, Diphtheria Vaccination: No Hx Influenza Vaccination: No Hx Pneumococcal Vaccination: No Immunizations Up to Date: Yes - Social History Hx Tobacco Use: No Hx Chewing Tobacco Use: No Hx Alcohol Use: No Hx Substance Use: - unknown Hx Substance Use Treatment: - unknown Hx Depression: Yes Feels Threatened In Home Enviroment: No Feels Threatened In a Relationship: No Hx Physical Abuse: No Hx Emotional Abuse: No Hx Suspected Abuse: No - Activities of Daily Living Hospice Agency (if applicable):: None - Female History Patient is a Female of Child Bearing Age (10 -59 yrs old): No - Triage Comment ED Triage Comment: pt states he tested positive for Covid on sunday09/27/20 Family Medical History - Family History Father Living Status: Still Living Hx Family Diabetes: Yes Physical Exam - Physical Exam General Appearance: Alert, Comfortable, No apparent distress Eye Exam: bilateral normal Ears, Nose, Throat: nasal congestion, pharyngeal erythema, other - He appears to hear well enough to converse Neck: non-tender, supple Respiratory: no respiratory distress, no accessory muscle use, rales, rhonchi Cardiovascular/Chest: normal peripheral pulses, regular rate, rhythm Peripheral Pulses: radial,right: 2+, radial,left: 2+ Gastrointestinal/Abdominal: non tender - Obese, soft Rectal Exam: deferred Back Exam: no vertebral tenderness Extremity: normal range of motion, non-tender, normal inspection, no calf tenderness, normal capillary refill, pedal edema - Trace pedal edema Neurologic: alert, normal mood/affect, other - The patient appears at his base line mental status. Skin Exam: normal color Comments: Vital Signs - 24 hr 09/30/20 09/30/20 09/30/20 21:29 21:51 22:15 Temperature 97.0 F L Pulse Rate 70 Pulse Rate [ 75 pulse ox] Respiratory 18 18 22 Rate Blood Pressure 126/82 [right arm] O2 Sat by Pulse 93 L 95 Oximetry 09/30/20 22:29 Temperature Pulse Rate Pulse Rate [ 83 pulse ox] Respiratory 22 Rate Blood Pressure 114/79 [right arm] O2 Sat by Pulse 93 L Oximetry Patient dropped to 87% on room air. Progress - Progress Progress: 10/01/20 00:01 The patient is a 50-year-old male presented emergency room secondary to increased shortness of breath and cough related to his coronavirus pneumonia. The patient has been started on supplemental oxygen, remdesivir, azithromycin, Rocephin, dexamethasone. He appears to be resting comfortably at this point. Chest x-ray is somewhat concerning however he is correcting nicely at this point with 2 L nasal cannula. Admit for continued care. michael [email or web address] [phone] - Results/Orders Results/Orders: Chest x-ray shows scattered pulmonary infiltrates consistent with a viral pneumonia. EKG shows normal sinus rhythm at 74 bpm. Normal R wave progression. Normal axis. No ST segment or T wave changes indicative of acute ischemia. Normal QT interval. Laboratory Tests 09/30/20 09/30/20 09/30/20 21:50 21:50 21:50 WBC 5.3 RBC 4.23 L Hgb 11.5 L Hct 35.2 L MCV 83.3 MCH 27.2 MCHC 32.6 L RDW 14.3 Plt Count 186 MPV 8.1 Absolute Neuts (auto) 3.90 Absolute Lymphs (auto) 0.80 L Absolute Monos (auto) 0.50 Absolute Eos (auto) 0.00 Absolute Basos (auto) 0.00 Neutrophils % 73.8 Lymphocytes % 16.0 L Monocytes % 9.1 H Eosinophils % 0.9 L Basophils % 0.2 PT INR PTT (SP) Fibrinogen D-Dimer, Quantitative Sodium 136 Potassium 4.0 Chloride 101 Carbon Dioxide 26 Anion Gap 13.0 BUN 15 Creatinine 1.10 BUN/Creatinine Ratio 13.6 Random Glucose 190 H Serum Osmolality 277.9 Lactic Acid 1.3 Calcium 8.2 L Magnesium Ferritin Total Bilirubin 0.5 AST 54 H ALT 65 H Alkaline Phosphatase 69 LD Total Creatine Kinase 151 CK-MB (CK-2) 2.3 CK-MB (CK-2) % Not Reportable Troponin I < 0.02 C-Reactive Protein B-Natriuretic Peptide < 15.0 Serum Total Protein 6.7 Albumin 3.4 Globulin 3.3 Albumin/Globulin Ratio 1.0 L TSH 09/30/20 09/30/20 09/30/20 21:50 21:50 22:00 WBC RBC Hgb Hct MCV MCH MCHC RDW Plt Count MPV Absolute Neuts (auto) Absolute Lymphs (auto) Absolute Monos (auto) Absolute Eos (auto) Absolute Basos (auto) Neutrophils % Lymphocytes % Monocytes % Eosinophils % Basophils % PT 8.9 L INR < 1.00 PTT (SP) 24.8 Fibrinogen D-Dimer, Quantitative < 131.0 L Sodium Potassium Chloride Carbon Dioxide Anion Gap BUN Creatinine BUN/Creatinine Ratio Random Glucose Serum Osmolality Lactic Acid Calcium Magnesium 2.5 Ferritin 415.0 H Total Bilirubin AST ALT Alkaline Phosphatase LD Total Creatine Kinase CK-MB (CK-2) CK-MB (CK-2) % Troponin I C-Reactive Protein B-Natriuretic Peptide Serum Total Protein Albumin Globulin Albumin/Globulin Ratio TSH 8.05 H 09/30/20 09/30/20 22:00 22:00 WBC RBC Hgb Hct MCV MCH MCHC RDW Plt Count MPV Absolute Neuts (auto) Absolute Lymphs (auto) Absolute Monos (auto) Absolute Eos (auto) Absolute Basos (auto) Neutrophils % Lymphocytes % Monocytes % Eosinophils % Basophils % PT INR PTT (SP) Fibrinogen 461 H D-Dimer, Quantitative Sodium Potassium Chloride Carbon Dioxide Anion Gap BUN Creatinine BUN/Creatinine Ratio Random Glucose Serum Osmolality Lactic Acid Calcium Magnesium Ferritin Total Bilirubin AST ALT Alkaline Phosphatase LD Total 243 H Creatine Kinase CK-MB (CK-2) CK-MB (CK-2) % Troponin I C-Reactive Protein 11.0 H* B-Natriuretic Peptide Serum Total Protein Albumin Globulin Albumin/Globulin Ratio TSH Departure - Departure Clinical Impression: Hypoxia, Pneumonia due to Coronavirus disease 2018 Disposition: Admit Patient Departure Forms: ED Discharge - Pt. Copy, Patient Portal Self Enrollment Referrals: Hodan Hubbard FNP [Primary Care Provider] - 1-2 Weeks Home Medications: Ambulatory Orders Benztropine Mesylate [Cogentin] 1 mg PO TID 06/09/15 Pravastatin Sodium [Pravachol] 40 mg PO BEDTIME 06/09/15 Prazosin HCl [Prazosin Hydrochloride] 2 mg PO TID 06/09/15 Quetiapine Fumarate [Seroquel] 400 mg PO DAILY 06/09/15 Risperidone 1 mg PO BID 06/09/15 Ondansetron [Zofran Odt] 8 mg PO BID PRN #5 tab 06/17/15 ARIPiprazole [Abilify] 10 mg PO DAILY 03/06/16 Albuterol Inhaler [Ventolin Hfa Inhaler] 2 puff INH Q4HR 03/06/16 Benzonatate 200 mg PO TID 03/06/16 Fluticasone Propionate (Nasal) [Flonase] 2 puff NA DAILY 03/06/16 Ketoconazole (Topical) [Ketoconazole] 2 % EX ONCE 03/06/16 Magnesium Oxide 400 mg PO PRN 03/06/16 Meloxicam [Mobic] 15 mg PO DAILY 03/06/16 Metformin HCl [Metformin HCl ER] 500 mg PO DAILY 03/06/16 Simvastatin 40 mg PO DAILY 03/06/16 Ibuprofen 400 mg PO Q8HR PRN #20 tab 03/08/20 Ibuprofen 600 mg PO QID PRN #30 tab 05/29/20 Magnesium Oxide [Mag-Ox Tab] 400 mg PO DAILY PRN #14 tab 05/29/20 Decision To Admit - Decistion To Admit Decision to Admit Reason: Medical Nature Decision to Admit Date: 10/01/20 Decision to Admit Time: 00:03
--- NOTE | 2020-10-01 00:04 | HP ---
SUPERVISING PHYSICIAN: Sreekanth Dorsey M.D. CHIEF COMPLAINT: Shortness of breath. HISTORY OF PRESENT ILLNESS: Mr. Stinson is a 50 year-old male patient who has a cognitive deficit due to developmental disorder with bipolar and anxiety issues. He is followed by [facility]. He presented to the Emergency Room last night with complaints that he could not breathe with increasing shortness of breath since this past Sunday. He had been diagnosed with COVID in the clinic on Sunday, so was not started on any medications at that time. His initial workup in the Emergency Room showed he had a white count of 5,300 with a decreased lymphocytic count. This study showed a D-dimer less than 131, but his C reactive protein was elevated at 11.2. Troponin was less than 0.2. Vital signs cultures were completed. A CT of his chest was also done showing extensive bilateral pulmonary infiltrates consisted with pneumonia. His vital signs on initial presentation to the Emergency Room did show that he was satting 92 to 93% on 2 liters nasal cannula at rest, although he was afebrile. Given the fact that he was diagnosed with COVID on Sunday, 4 days previously, and signs and symptoms consistent with COVID pneumonitis, he is going to be admitted for further treatment of COVID pneumonitis. He was admitted in stable condition. PAST MEDICAL HISTORY: Difficult to fully assess due to the patient's cognitive disabilities. A review of his records show that he has: 1. Diabetes mellitus type 2. 2. Hyperlipidemia. 3. Hypothyroidism. 4. Pernicious anemia. 5. Mild IDD. 6. Panic attacks. 7. Bipolar. 8. Hypertension. PAST SURGICAL HISTORY: Not listed. HOME MEDICATIONS: Awaiting an updated list from [facility]. ALLERGIES: PENICILLIN G AND ACETAMINOPHEN. FAMILY HISTORY: Unknown. SOCIAL HISTORY: The patient lives in [place] by himself. He is followed by [facility]. He has no tobacco, illicit drug use or alcohol history. REVIEW OF SYSTEMS: CONSTITUTIONAL: Positive for general malaise. Reports he is having a fever. Denies any weight loss or unexplained changes. HEENT: Positive for nasal congestion and sore throat. Denies any earaches, headaches or vision changes. RESPIRATORY: Positive for increasing cough and shortness of breath. Denies any chest wheeziness. CARDIOVASCULAR: Denies any chest pains, palpitations or syncopal episodes. GASTROINTESTINAL: Denies any vomiting, diarrhea, constipation or abdominal pain. GENITOURINARY: Denies any dysuria, hematuria, polyuria. MUSCULOSKELETAL: Denies any joint swelling or arthralgias. SKIN: Denies any unexplained changes, lesions or moles. NEUROLOGIC: As noted in History of Present Illness. No reported ataxia or seizures. He does have a developmental disorder but functions to lives within his own household on his own, but no reported focal motor deficits. HEMATOLOGIC: Denies any unexplained bleeding, bruising or transfusion reaction. PHYSICAL EXAMINATION: VITAL SIGNS: Temperature 97.0, pulse 75, blood pressure 162/82, respirations 18, satting 92 to 93% on nasal cannula on 2 liters at rest. GENERAL: The patient looks to be resting comfortably in no acute distress. He is alert. HEENT: Tympanic membranes clear bilaterally. Oropharynx is pink, moist without any lesions. NECK: Supple, nontender with full range of motion. No jugular venous distention noted. CHEST: Lung sounds with no obvious rhonchi, wheezing or rales, just a little diminished towards the bases. HEART: Regular rate and rhythm without appreciable murmurs, gallops, or rubs. ABDOMEN: Soft, obese, nontender. Positive bowel sounds. BACK: Exam is without any CVA or vertebral tenderness. RECTAL: Exam was deferred. EXTREMITIES: Without any clubbing, cyanosis or edema. NEUROLOGIC: He is alert and oriented times three. Cranial nerves II-XII appear to be grossly intact. There is no obvious motor or sensory deficit. He appears to be at his baseline mental status. SKIN: Warm, pink and dry. LABORATORY: White count 5,300, hemoglobin 11.5, hematocrit 35.2, platelet count 186,000. Differential shows to be without a left shift. Coagulation studies show D-dimer less than 131. Chemistries are showing normal electrolytes with creatinine 1.0, glucose 190, calcium 8.2. Liver functions show an elevation of AST at 54, ALT of 65. All other liver functions were was negative. TSH was a little elevated at 8.0. Urinalysis was pending. RADIOLOGY: CT of the chest per radiology interpretation shows extensive bilateral pulmonary infiltrates consistent with pneumonia. ASSESSMENT: 1. COVID pneumonia with bilateral pneumonia. 2. Developmental disorder with decreased cognitive function. 3. Hypertension. 4. Diabetes mellitus type 2 on oral therapy. 5. Hypothyroidism. 6. Hyperlipidemia. 7. Pernicious anemia. 8. Bipolar. PLAN: Mr. Stinson is going to be admitted for treatment of COVID pneumonitis with developing pneumonia. A review of his records show that he was previously diagnosed with COVID back in June. At this time he was diagnosed on Sunday, therefore he will be started on Remdesivir, azithromycin, Rocephin, Decadron. He will be on Lovenox per protocol. Will have him on sliding scale per protocol. Will resume his home medications once those have been updated and verified. He will be on gastric protection with a PPI. Anticipate length of stay to be at least 2 to 3 days. Until then will continue with aggressive pulmonary hygiene, Albuterol inhaler as needed. Continue to monitor and treat as needed. #[id number] [facility]
[2020-10-01] MEDS: PROMETHAZINE W/CODEINE SYR 6.25 MG/10 MG/5 ML UD PO PRN ×5 (00:55→20:35)
[2020-10-01] MEDS ORDERED: ALBUTEROL INHALER 64 PUFF/8GM INH PRN ×2 (02:53→06:56)
[2020-10-01] MEDS: ALBUTEROL INHALER 64 PUFF/8GM INH SCH ×7 (03:00→20:15)
[2020-10-01] MEDS ORDERED: ACETAMINOPHEN 325 MG TAB PO PRN (06:51)
[2020-10-01] MEDS ORDERED: SODIUM CHLORIDE 0.9% (FLUSH) 10 ML SYG IV PRN (06:51)
[2020-10-01] MEDS ORDERED: ONDANSETRON INJ 4 MG/2 ML VIAL IV PRN (06:51)
[2020-10-01] MEDS ORDERED: DEXTROSE 50% 25 GM/50 ML SYG IV PRN (06:58)
[2020-10-01] MEDS ORDERED: GLUCAGON INJ 1 MG VIAL SUBCU PRN (06:58)
[2020-10-01] MEDS ORDERED: AZITHROMYCIN IV 500 MG VIAL IVPB ONE (07:31)
[2020-10-01] MEDS ORDERED: SODIUM CHLORIDE 0.9% 250ML 250 ML ONE (07:32)
[2020-10-01] MEDS ORDERED: cefTRIAXone SODIUM 1 GM VIAL ONE (07:32)
[2020-10-01] MEDS ORDERED: SODIUM CHL 0.9% 50ML MIN-BAG+ 50 ML IVPB ONE (07:33)
--- NOTE | 2020-10-01 08:10 | CT ---
EXAM DESCRIPTION: Chest w/o Contrast CLINICAL HISTORY: 50 years, Male, covid COMPARISON: Chest x-ray September 30, 2020, CT abdomen and pelvis included the lower chest June 17, 2015 TECHNIQUE: Thin-section noncontrast axial CT images are obtained according to our protocol. Reconstructed MPR images are created and reviewed as well. FINDINGS: Lungs: Extensive bilateral pulmonary infiltrates consistent with pneumonia. No worrisome pulmonary mass or nodule. Mediastinum: Lymph nodes are normal in size. Normal vascular contours. Heart size is normal with no pericardial effusion. Chest wall/axilla: No mass or adenopathy. Lower neck/supraclavicular: No mass or adenopathy. Upper abdomen: Low density liver consistent with hepatic steatosis. Spleen is enlarged measuring 14.7 cm on diagonal measurement with no focal splenic lesion. Otherwise unremarkable upper abdominal viscera. Coronal and sagittal reformatted images confirm the findings. IMPRESSION: Extensive bilateral pulmonary infiltration consistent with pneumonia. This exam was performed according to our departmental dose-optimization program, which includes automated exposure control, adjustment of the mA and/or kV according to patient size and/or use of iterative reconstruction technique. Total DLP equals 992.45 mGycm. Electronically signed by: Zuhair Steiner MD 10/01/2020 8:08 AM DIE FINISHER
[2020-10-01] MEDS: IV SET AND CAP CHANGE INJ INJ SCH (09:09)
[2020-10-01] MEDS: guaiFENesin ER TAB 600 MG TAB PO SCH ×2 (09:10→20:33)
[2020-10-01] MEDS: ENOXAPARIN SODIUM 40 MG/0.4 ML SYG SUBCU SCH (09:10)
[2020-10-01] MEDS: DEXAMETHASONE INJ 10 MG/ML VIAL IV SCH (09:10)
[2020-10-01] MEDS: BIFIDOBACTERIUM INFANTIS 4 MG CAP PO SCH ×2 (09:10→20:33)
[2020-10-01] MEDS: SODIUM CHLORIDE 0.9% (FLUSH) 10 ML SYG IV SCH ×2 (09:11→20:35)
[2020-10-01] MEDS: cefTRIAXone SODIUM 1 GM in SODIUM CHL 0.9% 50ML MIN-BAG+ 50 ML IVPB SCH (09:12)
[2020-10-01] MEDS: AZITHROMYCIN IV 500 MG in SODIUM CHLORIDE 0.9% 250ML 250 ML IVPB SCH (09:13)
[2020-10-01] MEDS: INSULIN LISPRO 100 UNITS/ML PEN SUBCU SCH ×4 (09:57→20:39)
[2020-10-01] MEDS: REMDESIVIR 100 MG in SODIUM CHLORIDE 0.9% 250ML 250 ML IVPB SCH (12:11)
[2020-10-01] MEDS: GABAPENTIN 100 MG CAP PO SCH ×2 (14:28→20:33)
[2020-10-01] MEDS: LOSARTAN POTASSIUM 25 MG TAB PO SCH (14:28)
[2020-10-01] MEDS: DULoxetine HCL 30 MG CAP PO SCH (14:28)
[2020-10-01] MEDS: QUEtiapine FUMARATE 100 MG TAB PO SCH ×2 (14:28→20:33)
[2020-10-01] MEDS ORDERED: GABAPENTIN 100 MG CAP ONE (19:00)
[2020-10-01] MEDS ORDERED: SIMVASTATIN 20 MG TAB ONE (19:00)
[2020-10-01] MEDS: SIMVASTATIN 20 MG TAB PO SCH (20:34)
[2020-10-01] MEDS ORDERED: CALCIUM CARBONATE (ANTACID) 500 MG CHEWABLE TAB PO ONE (21:05)
[2020-10-01] MEDS: TRAVOPROST 0.004% BOTH_EYES SCH (21:11)
[2020-10-02] MEDS: ALBUTEROL INHALER 64 PUFF/8GM INH SCH ×7 (01:34→20:20)
[2020-10-02] MEDS: PROMETHAZINE W/CODEINE SYR 6.25 MG/10 MG/5 ML UD PO PRN ×5 (02:55→21:10)
[2020-10-02] MEDS ORDERED: PANTOPRAZOLE SODIUM IV 40 MG VIAL ONE (05:12)
[2020-10-02] MEDS: PANTOPRAZOLE SODIUM IV 40 MG VIAL IV SCH (06:05)
[2020-10-02] MEDS: INSULIN LISPRO 100 UNITS/ML PEN SUBCU SCH ×4 (07:48→20:17)
[2020-10-02] MEDS: metFORMIN HCL 500 MG TAB PO SCH (07:49)
--- NOTE | 2020-10-02 07:59 | RAD ---
: 1970. Technique: Portable AP upright chest x-ray. Comparison: September 30, 2020. Clinical history: covid. Heart size: Heart size looks enlarged in part exaggerated by technique. Lungs: Shallow inspiration. Patchy central right and left lower lung field infiltrates redemonstrated from viral pneumonia. There is partial clearing on the right side. No new infiltrates. Pleura: No pleural effusion. No pneumothorax. Mediastinum and edilia: Unremarkable. Skeletal: Unremarkable. Support tubings: None. Impression: 1. Viral pneumonia improving on the right. Electronically signed by: Terrell Lebron MD 10/02/2020 7:58 AM COMPUTER ANIMATOR
[2020-10-02] MEDS: BIFIDOBACTERIUM INFANTIS 4 MG CAP PO SCH ×2 (08:49→19:10)
[2020-10-02] MEDS: DEXAMETHASONE INJ 10 MG/ML VIAL IV SCH (08:49)
[2020-10-02] MEDS: DULoxetine HCL 30 MG CAP PO SCH (08:49)
[2020-10-02] MEDS: guaiFENesin ER TAB 600 MG TAB PO SCH ×2 (08:50→19:12)
[2020-10-02] MEDS: QUEtiapine FUMARATE 100 MG TAB PO SCH ×2 (08:50→19:13)
[2020-10-02] MEDS: cefTRIAXone SODIUM 1 GM in SODIUM CHL 0.9% 50ML MIN-BAG+ 50 ML IVPB SCH (08:50)
[2020-10-02] MEDS: GABAPENTIN 100 MG CAP PO SCH ×2 (08:50→19:12)
[2020-10-02] MEDS: LOSARTAN POTASSIUM 25 MG TAB PO SCH (08:50)
[2020-10-02] MEDS: SODIUM CHLORIDE 0.9% (FLUSH) 10 ML SYG IV SCH ×2 (08:51→19:13)
[2020-10-02] MEDS: AZITHROMYCIN IV 500 MG in SODIUM CHLORIDE 0.9% 250ML 250 ML IVPB SCH (08:51)
[2020-10-02] MEDS: ENOXAPARIN SODIUM 40 MG/0.4 ML SYG SUBCU SCH (08:52)
[2020-10-02] MEDS: REMDESIVIR 100 MG in SODIUM CHLORIDE 0.9% 250ML 250 ML IVPB SCH (11:45)
--- NOTE | 2020-10-02 18:08 | PN ---
SUPERVISING PHYSICIAN; Sreekanth Dorsey M.D. DATE: 10/02/20 SUBJECTIVE: The patient seems to be doing okay. He remains on nasal cannula with no obvious signs of distress. He remains afebrile. OBJECTIVE: VITAL SIGNS: Temperature 98.4, pulse 68, blood pressure 104/62, respirations 18, satting 92 to 94% on 6 liters nasal cannula at rest. GENERAL: The patient is resting comfortably. Does not show to be in any distress. CHEST: Lung sounds are just diminished bilaterally to the bases, otherwise no obvious rhonchi, wheezing or rales. HEART: Regular rate and rhythm without appreciable murmurs, gallops, or rubs. ABDOMEN: Obese but soft, non-tender. Positive bowel sounds. EXTREMITIES: Show to be without any edema today. NEUROLOGIC: He seems to be at baseline mental status with no obvious neuromotor deficits. He is alert and oriented times three. SKIN: Warm, pink and dry. LABORATORY: White count 4,900, hemoglobin 10.6, hematocrit 32.5, platelet count 210,000. Differential shows to be without a left shift today, just a low lymphocytic count. D-dimer remains less than 131. Fibrinogen is down to 400. CBC is normal at 22.3. Chemistries show just a mildly low potassium at 3.5, otherwise all other electrolytes are within normal limits. Creatinine is 1.03. Blood sugars range between 149 to 262. Magnesium is a little high at 2.6, calcium 8.5. Liver functions all within normal limits. LDH was slightly elevated at 197, C reactive protein is 3.9 which is down from admission of 11.0. MICROBIOLOGY: Blood cultures remain negative at 24 hours. RADIOLOGY: Repeat chest x-ray today per radiology interpretation shows viral pneumonia improving on the right. ASSESSMENT: 1. COVID pneumonia with bilateral pneumonia. 2. Developmental disorder with decreased cognitive function. 3. Hypertension. 4. Diabetes mellitus type 2 on oral therapy. 5. Hypothyroidism. 6. Hyperlipidemia. 7. Pernicious anemia. 8. Bipolar. PLAN: Will continue current treatment of COVID pneumonitis pneumonia. His home medications have been started back. He remains on Remdesivir, azithromycin, Rocephin and Decadron, breathing treatments and aggressive pulmonary hygiene. Anticipate hopefully being able to transition to outpatient management within the next 1 to 2 days. Until that point will continue to monitor and treat as needed. [facility][id number] [facility]
[2020-10-02] MEDS: SIMVASTATIN 20 MG TAB PO SCH (19:11)
[2020-10-02] MEDS: TRAVOPROST 0.004% BOTH_EYES SCH (19:14)
[2020-10-03] MEDS ORDERED: PROMETHAZINE W/CODEINE SYR 6.25 MG/10 MG/5 ML UD PO ONE ×2 (01:05→01:09)
[2020-10-03] MEDS: PROMETHAZINE W/CODEINE SYR 6.25 MG/10 MG/5 ML UD PO PRN ×3 (01:07→09:54)
[2020-10-03] MEDS: ALBUTEROL INHALER 64 PUFF/8GM INH SCH ×6 (05:00→23:45)
[2020-10-03] MEDS: PANTOPRAZOLE SODIUM IV 40 MG VIAL IV SCH (05:43)
[2020-10-03] MEDS: metFORMIN HCL 500 MG TAB PO SCH (07:18)
[2020-10-03] MEDS: INSULIN LISPRO 100 UNITS/ML PEN SUBCU SCH ×4 (07:22→20:27)
[2020-10-03] MEDS: ENOXAPARIN SODIUM 40 MG/0.4 ML SYG SUBCU SCH (09:00)
[2020-10-03] MEDS: DEXAMETHASONE INJ 10 MG/ML VIAL IV SCH (09:00)
[2020-10-03] MEDS: guaiFENesin ER TAB 600 MG TAB PO SCH ×2 (09:00→20:25)
[2020-10-03] MEDS: BIFIDOBACTERIUM INFANTIS 4 MG CAP PO SCH ×2 (09:00→20:25)
[2020-10-03] MEDS: GABAPENTIN 100 MG CAP PO SCH ×2 (09:01→20:26)
[2020-10-03] MEDS: LOSARTAN POTASSIUM 25 MG TAB PO SCH (09:01)
[2020-10-03] MEDS: QUEtiapine FUMARATE 100 MG TAB PO SCH ×2 (09:01→20:26)
[2020-10-03] MEDS: DULoxetine HCL 30 MG CAP PO SCH (09:01)
[2020-10-03] MEDS: cefTRIAXone SODIUM 1 GM in SODIUM CHL 0.9% 50ML MIN-BAG+ 50 ML IVPB SCH (09:02)
[2020-10-03] MEDS: AZITHROMYCIN IV 500 MG in SODIUM CHLORIDE 0.9% 250ML 250 ML IVPB SCH (09:03)
[2020-10-03] MEDS: SODIUM CHLORIDE 0.9% (FLUSH) 10 ML SYG IV SCH ×2 (09:54→20:26)
[2020-10-03] MEDS: REMDESIVIR 100 MG in SODIUM CHLORIDE 0.9% 250ML 250 ML IVPB SCH (13:03)
--- NOTE | 2020-10-03 16:38 | PN ---
SUPERVISING PHYSICIAN; Sreekanth Dorsey M.D. DATE: 10/03/20 SUBJECTIVE: The patient had a slight increase in his oxygen demand. He has been moved over to the Airvo system, high flow nasal cannula, to see if he tolerates that well. Otherwise, he has no other complaints, no nausea or vomiting, diarrhea, constipation or chest pain. OBJECTIVE: VITAL SIGNS: Temperature 97.5, pulse 74, blood pressure 100/62, respirations 18, satting 96% on 8 liters high flow nasal. GENERAL: The patient looks to be resting comfortably, in no acute distress on the Airvo system. Otherwise, seems to be stable. CHEST: Remains diminished towards the bases I am no hearing any rhonchi, rales, or wheezes. HEART: Regular rate and rhythm. ABDOMEN: Obese but soft, non-tender. Positive bowel sounds. EXTREMITIES: Remain without edema. NEUROLOGIC: He is alert and oriented times three. LABORATORY: White count stable at 6,200 as well as hemoglobin 10.2, hematocrit 31.2/, Platelet count 219,000. Differential shows a left shift. D-dimer remaining at less than 131. Chemistries show normal electrolytes. Creatinine 0.86. Blood sugar ranges between 140 and 191. C-reactive protein down to 4.2 from admission of 11.0. MICROBIOLOGY: Blood cultures remain negative at 48 hours. RADIOLOGY: No additional radiographic studies today. Will repeat chest x-ray in the morning. ASSESSMENT: 1. COVID pneumonia with bilateral pneumonia. 2. Developmental disorder with decreased cognitive function. 3. Hypertension. 4. Diabetes mellitus type 2 on oral therapy. 5. Hypothyroidism. 6. Hyperlipidemia. 7. Pernicious anemia. 8. Bipolar. PLAN: Will continue current with treatment for COVID pneumonitis with concerns for developing pneumonia. He has been transitioned over to the Airvo high flow nasal cannula system and tolerating this well. I do not think patient will tolerate a BiPAP system if we have to go to BiPAP. Hopefully, that won't be the case. His developmental level is going to make it quite difficult if we have to do anything more dramatic in regard to his oxygenation requirements. He is till on Remdesivir, azithromycin, Rocephin and Decadron. We have given breathing treatments as needed as well as aggressive pulmonary hygiene. Again, hopefully we will be able to transition down his 02 needs and transition him to outpatient management in the next 1 to 2 days. Until that point will continue to monitor and treat as needed. #[id number] [facility]
[2020-10-03] MEDS: SIMVASTATIN 20 MG TAB PO SCH (20:26)
[2020-10-03] MEDS: guaiFENesin W/CODEINE LIQ 10 ML UD PO PRN (20:32)
[2020-10-03] MEDS: TRAVOPROST 0.004% BOTH_EYES SCH (20:54)
[2020-10-04] MEDS: ALBUTEROL INHALER 64 PUFF/8GM INH SCH ×5 (04:32→20:42)
[2020-10-04] MEDS: guaiFENesin W/CODEINE LIQ 10 ML UD PO PRN ×2 (04:46→09:52)
[2020-10-04] MEDS: PANTOPRAZOLE SODIUM IV 40 MG VIAL IV SCH (06:00)
[2020-10-04] MEDS: BIFIDOBACTERIUM INFANTIS 4 MG CAP PO SCH ×2 (08:03→20:00)
[2020-10-04] MEDS: DEXAMETHASONE INJ 10 MG/ML VIAL IV SCH (08:03)
[2020-10-04] MEDS: guaiFENesin ER TAB 600 MG TAB PO SCH ×2 (08:03→20:00)
[2020-10-04] MEDS: GABAPENTIN 100 MG CAP PO SCH ×2 (08:03→20:00)
[2020-10-04] MEDS: DULoxetine HCL 30 MG CAP PO SCH (08:04)
[2020-10-04] MEDS: QUEtiapine FUMARATE 100 MG TAB PO SCH ×2 (08:04→20:00)
[2020-10-04] MEDS: LOSARTAN POTASSIUM 25 MG TAB PO SCH (08:04)
[2020-10-04] MEDS: IV SET AND CAP CHANGE INJ INJ SCH (08:05)
[2020-10-04] MEDS: INSULIN LISPRO 100 UNITS/ML PEN SUBCU SCH ×4 (08:06→20:07)
[2020-10-04] MEDS: metFORMIN HCL 500 MG TAB PO SCH (08:06)
[2020-10-04] MEDS: cefTRIAXone SODIUM 1 GM in SODIUM CHL 0.9% 50ML MIN-BAG+ 50 ML IVPB SCH (09:43)
[2020-10-04] MEDS: ENOXAPARIN SODIUM 40 MG/0.4 ML SYG SUBCU SCH (09:45)
[2020-10-04] MEDS: SODIUM CHLORIDE 0.9% (FLUSH) 10 ML SYG IV SCH ×2 (09:51→20:02)
[2020-10-04] MEDS: AZITHROMYCIN IV 500 MG in SODIUM CHLORIDE 0.9% 250ML 250 ML IVPB SCH (09:51)
--- NOTE | 2020-10-04 10:33 | PN ---
SUPERVISING PHYSICIAN: Emile Waite MD DATE: 10/04/20 SUBJECTIVE: The patient states he is short of breathing in walking around the room with his high flow on. He is not tachypneic. OBJECTIVE: VITAL SIGNS: Blood pressure 139/83, heart rate 63, respiratory rate 22, temperature 98.1, oxygen saturation 93% on 8 liters high flow. GENERAL: Mr. Stinson is a 30-year-old male patient who is in no active distress. NEUROLOGIC: The patient is alert and at baseline mentation. LUNGS: Diminished, otherwise clear to auscultation bilaterally. CARDIOVASCULAR: Regular rate and rhythm. Normal S1, S2. ABDOMEN: Soft. Positive bowel sounds. EXTREMITIES: Lower extremities with no edema. LABORATORY: No labs for review today. RADIOLOGY: No x-rays for review today. ASSESSMENT: 1. COVID pneumonitis. 2. Developmental disorder with decreased cognitive function. 3. Hypertension. 4. Diabetes mellitus, type 2. 5. Hypothyroidism. 6. Hyperlipidemia. 7. Pernicious anemia. 8. Bipolar. PLAN: The patient seems to be maintaining on current therapy. We will continue and check labs and x-rays as needed. We will wean FiO2 as tolerated. #[id number] [facility]
[2020-10-04] MEDS: REMDESIVIR 100 MG in SODIUM CHLORIDE 0.9% 250ML 250 ML IVPB SCH (12:18)
[2020-10-04] MEDS: SIMVASTATIN 20 MG TAB PO SCH (20:01)
[2020-10-04] MEDS: TRAVOPROST 0.004% BOTH_EYES SCH (20:08)
[2020-10-05] MEDS: ALBUTEROL INHALER 64 PUFF/8GM INH SCH ×6 (04:00→20:42)
[2020-10-05] MEDS ORDERED: PANTOPRAZOLE SODIUM TAB 40 MG PO ONE (04:41)
[2020-10-05] MEDS: PANTOPRAZOLE SODIUM TAB 40 MG PO SCH (05:50)
[2020-10-05] MEDS: INSULIN LISPRO 100 UNITS/ML PEN SUBCU SCH ×4 (08:14→21:10)
[2020-10-05] MEDS: DULoxetine HCL 30 MG CAP PO SCH (08:42)
[2020-10-05] MEDS: GABAPENTIN 100 MG CAP PO SCH ×2 (08:42→20:50)
[2020-10-05] MEDS: DEXAMETHASONE INJ 10 MG/ML VIAL IV SCH (08:42)
[2020-10-05] MEDS: guaiFENesin ER TAB 600 MG TAB PO SCH ×2 (08:42→20:48)
[2020-10-05] MEDS: LOSARTAN POTASSIUM 25 MG TAB PO SCH (08:42)
[2020-10-05] MEDS: metFORMIN HCL 500 MG TAB PO SCH (08:42)
[2020-10-05] MEDS: BIFIDOBACTERIUM INFANTIS 4 MG CAP PO SCH ×2 (08:42→20:48)
[2020-10-05] MEDS: QUEtiapine FUMARATE 100 MG TAB PO SCH ×2 (08:42→20:50)
[2020-10-05] MEDS: ENOXAPARIN SODIUM 40 MG/0.4 ML SYG SUBCU SCH (08:43)
[2020-10-05] MEDS: cefTRIAXone SODIUM 1 GM in SODIUM CHL 0.9% 50ML MIN-BAG+ 50 ML IVPB SCH (08:44)
[2020-10-05] MEDS: SODIUM CHLORIDE 0.9% (FLUSH) 10 ML SYG IV SCH ×2 (08:44→20:50)
[2020-10-05] MEDS: AZITHROMYCIN IV 500 MG in SODIUM CHLORIDE 0.9% 250ML 250 ML IVPB SCH (10:30)
--- NOTE | 2020-10-05 10:39 | PN ---
SUPERVISING PHYSICIAN: Emile Waite MD DATE: 10/05/20 SUBJECTIVE: The patient jewell not complain of any pain at this time. He still complains of shortness of breath although he is not tachypneic at this time. OBJECTIVE: VITAL SIGNS: Blood pressure 110/69, heart rate 57, respiratory rate 18, temperature 98.0, oxygen saturation 96% on high flow canula at this time. GENERAL: Mr. Stinson is a 50-year-old male patient who is in no active distress currently. NEUROLOGIC: The patient is alert. LUNGS: Mild rales in the bases, otherwise clear to auscultation bilaterally in the upper lung [place]. CARDIOVASCULAR: Regular rate and rhythm. Normal S1, S2. ABDOMEN: Soft. Positive bowel sounds. EXTREMITIES: Lower extremities with no significant edema. LABORATORY: White count 7.4, hemoglobin 10.6, platelet count 216. Chemistries unremarkable except for elevated glucose at 170. CRP 1.8. ASSESSMENT: 1. COVID pneumonitis. 2. Developmental disorder with decreased cognitive function. 3. Hypertension. 4. Diabetes mellitus, type 2. 5. Hypothyroidism. 6. Hyperlipidemia. 7. Pernicious anemia. 8. Bipolar disorder. PLAN: Continue to wean FiO2 as tolerated on the high flow and eventually try to leave that to a regular nasal cannula. Continue all other current therapy. We will recheck lab and chest x-ray as needed. #[id number] [facility]
[2020-10-05] MEDS: SIMVASTATIN 20 MG TAB PO SCH (20:48)
[2020-10-05] MEDS: TRAVOPROST 0.004% BOTH_EYES SCH (20:49)
[2020-10-06] MEDS: ALBUTEROL INHALER 64 PUFF/8GM INH SCH ×6 (01:00→21:20)
[2020-10-06] MEDS: guaiFENesin W/CODEINE LIQ 10 ML UD PO PRN ×2 (05:34→20:28)
[2020-10-06] MEDS: PANTOPRAZOLE SODIUM TAB 40 MG PO SCH (05:34)
--- NOTE | 2020-10-06 07:13 | RAD ---
EXAM DESCRIPTION: Chest,1 View 10/06/2020 7:11 AM GARBAGE MAN CLINICAL HISTORY: 50 years, Male, covid COMPARISON: 10/02/2020 FINDINGS: Single view of the chest was obtained portable. Prior films were compared. Decreased lung volume. External EKG leads within the [id number] limits diagnosis. The cardiomediastinal silhouette demonstrate to be unremarkable. The heart is not enlarged. The thoracic aorta is unremarkable. There is minimal increased interstitial airspace opacities suggesting the possibility of viral pneumonia. The rest of the soft tissue and bony structures demonstrate to be unremarkable. IMPRESSION: DECREASED LUNG VOLUME. INTERSTITIAL OPACITIES BILATERAL LUNG SUGGESTING VIRAL PNEUMONIA/COVID 19 PNEUMONIA Electronically signed by: Gabe Montana MD 10/06/2020 7:12 AM GARBAGE MAN
[2020-10-06] MEDS: DULoxetine HCL 30 MG CAP PO SCH (07:57)
[2020-10-06] MEDS: BIFIDOBACTERIUM INFANTIS 4 MG CAP PO SCH ×2 (07:57→20:27)
[2020-10-06] MEDS: QUEtiapine FUMARATE 100 MG TAB PO SCH ×2 (07:57→20:27)
[2020-10-06] MEDS: DEXAMETHASONE INJ 10 MG/ML VIAL IV SCH (07:57)
[2020-10-06] MEDS: LOSARTAN POTASSIUM 25 MG TAB PO SCH (07:58)
[2020-10-06] MEDS: INSULIN LISPRO 100 UNITS/ML PEN SUBCU SCH ×4 (08:04→20:41)
[2020-10-06] MEDS: metFORMIN HCL 500 MG TAB PO SCH (08:45)
[2020-10-06] MEDS: cefTRIAXone SODIUM 1 GM in SODIUM CHL 0.9% 50ML MIN-BAG+ 50 ML IVPB SCH (08:45)
[2020-10-06] MEDS: ENOXAPARIN SODIUM 40 MG/0.4 ML SYG SUBCU SCH (08:45)
[2020-10-06] MEDS: AZITHROMYCIN IV 500 MG in SODIUM CHLORIDE 0.9% 250ML 250 ML IVPB SCH (08:45)
[2020-10-06] MEDS: GABAPENTIN 100 MG CAP PO SCH ×2 (08:45→20:27)
[2020-10-06] MEDS: guaiFENesin ER TAB 600 MG TAB PO SCH ×2 (08:46→20:27)
[2020-10-06] MEDS: SODIUM CHLORIDE 0.9% (FLUSH) 10 ML SYG IV SCH ×2 (08:46→20:27)
--- NOTE | 2020-10-06 13:09 | PN ---
SUPERVISING PHYSICIAN: Emile Waite MD DATE: 10/06/20 SUBJECTIVE: The patient is sitting up in bed. He has no complaints. Nursing reported he had no issues overnight. OBJECTIVE: VITAL SIGNS: Temperature 97.8, heart rate 53, blood pressure 122/70, respiratory rate 24, O2 saturation 93% on high flow nasal cannula. RESPIRATORY: Diminished throughout and mildly tachypneic at rest. CARDIAC: Regular rate and rhythm. At times, he is slightly bradycardic. NEUROLOGIC: Awake and alert. LABORATORY: WBCs 8,400, hemoglobin 11.2, hematocrit 34.1. D-dimer less than 131. Electrolytes are basically within normal limits. MICROBIOLOGY: Final blood cultures show no growth after 5 days. RADIOLOGY: Chest x-ray shows decreased lung volume with interstitial opacities bilateral lungs suggesting viral pneumonia, COVID-19 pneumonia. All other labs and films have been reviewed via the EMR. ASSESSMENT: 1. COVID pneumonitis. 2. Developmental disorder with decreased cognitive function. 3. Hypertension. 4. Diabetes mellitus, type 2. 5. Hypothyroidism. 6. Hyperlipidemia. 7. Pernicious anemia. 8. Bipolar disorder. PLAN: We will continue present supportive care including continuing on the COVID-19 guidelines. We will titrate his oxygen down as he tolerated and have aggressive pulmonary hygiene. He will have labs and chest x-ray tomorrow. We will continue to follow and treat as needed. #[id number] [facility]
[2020-10-06] MEDS: SIMVASTATIN 20 MG TAB PO SCH (20:28)
[2020-10-06] MEDS: TRAVOPROST 0.004% BOTH_EYES SCH (20:28)
[2020-10-07] MEDS: ALBUTEROL INHALER 64 PUFF/8GM INH SCH ×4 (01:16→13:00)
[2020-10-07] MEDS: PANTOPRAZOLE SODIUM TAB 40 MG PO SCH (05:41)
[2020-10-07] MEDS: IV SET AND CAP CHANGE INJ INJ SCH (06:25)
--- NOTE | 2020-10-07 07:26 | RAD ---
EXAM: XR Chest, 1 View CLINICAL HISTORY: The patient is 50 years old and is Male; covid TECHNIQUE: Frontal view of the chest. COMPARISON: Chest radiograph from 10/06/2020 FINDINGS: LUNGS: Mild to moderate ill-defined opacities again visualized primarily in the periphery of the lungs. These remain slightly more prominent on the left compared to the right. Overall, findings do not appear significantly changed compared to the recent prior exam. PLEURAL SPACE: No significant pleural effusion. No obvious pneumothorax. HEART: Stable mild enlargement of the cardiac silhouette. MEDIASTINUM: Unremarkable. BONES/JOINTS: Bones are unchanged. IMPRESSION: No significant interval change appreciated. Electronically signed by: Kellie Frye MD 10/07/2020 7:24 AM CONTINUOUS DRIER OPERATOR
[2020-10-07] MEDS: INSULIN LISPRO 100 UNITS/ML PEN SUBCU SCH ×2 (07:40→11:45)
[2020-10-07] MEDS: metFORMIN HCL 500 MG TAB PO SCH (07:40)
[2020-10-07] MEDS: cefTRIAXone SODIUM 1 GM in SODIUM CHL 0.9% 50ML MIN-BAG+ 50 ML IVPB SCH (08:29)
[2020-10-07] MEDS: guaiFENesin W/CODEINE LIQ 10 ML UD PO PRN (08:29)
[2020-10-07] MEDS: LOSARTAN POTASSIUM 25 MG TAB PO SCH (08:30)
[2020-10-07] MEDS: QUEtiapine FUMARATE 100 MG TAB PO SCH (08:30)
[2020-10-07] MEDS: DULoxetine HCL 30 MG CAP PO SCH (08:30)
[2020-10-07] MEDS: DEXAMETHASONE INJ 10 MG/ML VIAL IV SCH (08:31)
[2020-10-07] MEDS: GABAPENTIN 100 MG CAP PO SCH (08:31)
[2020-10-07] MEDS: guaiFENesin ER TAB 600 MG TAB PO SCH (08:31)
[2020-10-07] MEDS: BIFIDOBACTERIUM INFANTIS 4 MG CAP PO SCH (08:31)
[2020-10-07] MEDS: ENOXAPARIN SODIUM 40 MG/0.4 ML SYG SUBCU SCH (08:32)
[2020-10-07] MEDS: SODIUM CHLORIDE 0.9% (FLUSH) 10 ML SYG IV SCH (08:32)
[2020-10-07] MEDS: AZITHROMYCIN IV 500 MG in SODIUM CHLORIDE 0.9% 250ML 250 ML IVPB SCH (09:05)
[2020-10-07] MEDS ORDERED: amLODIPine BESYLATE 5 MG TAB PO ONE (10:00)
[2020-10-07 15:55] VITALS: TEMP 97.6
[2020-10-07 15:56] VITALS: BP 130/84; O2SAT 96
--- NOTE | 2020-10-07 20:18 | DS ---
SUPERVISING PHYSICIAN: Emile Waite M.D. DISCHARGE DIAGNOSIS: 1. COVID-19 pneumonitis. 2. Developmental disorder with decreased cognitive function. 3. Hypertension. 4. Diabetes mellitus, type 2. 5. Hypothyroidism. 6. Hyperlipidemia. 7. Pernicious anemia. 8. Bipolar disorder. HISTORY OF PRESENT ILLNESS: This is a 50 year-old male patient who has a cognitive deficit due to developmental disorder with bipolar and anxiety issues. He is followed by [facility]. He presented to the Emergency Room with increasing shortness of breath. He had been diagnosed with COVID on Sunday. He had not been started on any medications at that time. His initial workup in the Emergency Room showed a white count of 5,300 with a D-dimer less than 131 but his C reactive protein was elevated at 11.2. Troponin was less than 0.2. CT of the chest showed extensive bilateral pulmonary infiltrates consistent with pneumonia. His O2 saturations on 2 liters nasal cannula were 92 to 93%. He was afebrile. He was admitted to the hospital in stable condition. HOSPITAL COURSE: The patient was admitted to the hospital and continued on the COVID-19 guidelines. He was started on Remdesivir, Decadron, Rocephin, azithromycin as well as Lovenox. He also was on sliding scale insulin per protocol. His home medications were resumed. A PPI was ordered for gastric protection. He had aggressive pulmonary hygiene, including bronchodilators both p.r.n. and scheduled. Over the next several days he required supplemental oxygen and had mild desaturations with exertion, but his vital signs stabilized. He was weaned off of his oxygen, although at one point he had to be on Airvo high flow nasal cannula, but only was for a day and then his oxygen was titrated down. Today, he was on room air. His ambulation study showed that he maintained his O2 saturation above 91% with exertion. He had a Physical Therapy evaluation and they felt he could safely go home with outpatient physical therapy. [facility] was contacted to give recommendations for physical therapy. He will be discharged in stable condition. LABORATORY: WBCs remained stable between 4,900 and 9,700. H&H is stable at 11.6 and 36.5. D-dimer has always been less than 131. Electrolytes have been stable, although he did have a slightly elevated magnesium initially. It is now 2.2. C reactive protein was 11 and is now less than 0.8. Final blood cultures showed no growth after 5 days. Final chest x-ray shows no significant interval change appreciated with mild to moderate, ill-defined opacities again visualized primarily in the periphery of the lungs. His other labs and x-rays can be reviewed via the EMR. DISCHARGE PLAN: The patient will be discharged home in stable condition. He will be followed by [facility] with his sitters. He will have outpatient physical therapy. He is to followup with Rae Hubbard within 1 to 2 weeks. In addition to his routine home medications, he is to have Align, Cefdinir, Dexamethasone, Guaifenesin, Albuterol and azithromycin. He is to return to the hospital or followup with Rae Hubbard for any problems or complications. DISCHARGE MEDICATIONS: 1. Seroquel. 2. Metformin. 3. Cymbalta. 4. Kenalog cream. 5. Travoprost ophthalmic. 6. Restoril. 7. Pantoprazole. 8. Gabapentin. 9. Losartan. 10. Januvia. 11. Glipizide. 12. Simvastatin. 13. Align. 14. Cefdinir. 15. Dexamethasone. 16. Guaifenesin. 17. Albuterol. 18. Azithromycin. [facility][id number] [facility]
== END 2020-10-07 15:30 | disposition home or self-care (01) | DRG 177 ==
LOC: ER 21:28 → MS 10-01 00:03 → OBSVTOIN 10-01 00:03
PROVIDERS: ADMIT Nurse Practitioner Acute Care; ATTEND Nurse Practitioner Acute Care
PROC: XW033E5 Introduction of Remdesivir Anti-infective into Peripheral Vein, Percutaneous Approach, New Technology Group 5 (ICD-10-PCS; principal; 2020-10-01)
PROC: 5A0935A Assistance with Respiratory Ventilation, Less than 24 Consecutive Hours, High Flow/Velocity Cannula (ICD-10-PCS; 2020-10-03)
DX: U07.1 COVID-19 (principal); J12.82 Pneumonia due to coronavirus disease 2019; I10 Essential (primary) hypertension; E11.9 Type 2 diabetes mellitus without complications; E03.9 Hypothyroidism, unspecified; E78.5 Hyperlipidemia, unspecified; F31.9 Bipolar disorder, unspecified; D51.0 Vitamin B12 deficiency anemia due to intrinsic factor deficiency; F88 Other disorders of psychological development; F41.0 Panic disorder [episodic paroxysmal anxiety]; Z88.0 Allergy status to penicillin; Z88.6 Allergy status to analgesic agent; E66.9 Obesity, unspecified; Z79.1 Long term (current) use of non-steroidal anti-inflammatories (NSAID); Z79.84 Long term (current) use of oral hypoglycemic drugs; Z79.899 Other long term (current) drug therapy; Z68.38 Body mass index [BMI] 38.0-38.9, adult

== ENCOUNTER 2020-10-29 22:36 | Emergency (ER) | payer MEDICARE, MEDICAID, OTHER ==
[2020-10-29] MEDS ORDERED: ONDANSETRON ODT 8 MG TAB SL ONE (23:12)
[2020-10-29] MEDS ORDERED: SODIUM CHLORIDE 0.9% 1000ML 1,000 ML IVS ONE (23:13)
--- NOTE | 2020-10-29 23:51 | RAD ---
EXAM DESCRIPTION: Abdomen Series 10/29/2020 11:47 PM SUBGRADE TESTER CLINICAL HISTORY: 50 years, Male, cough, nv COMPARISON: None FINDINGS: 3 X-ray views of the of the chest and abdomen (PA chest, supine and erect) were performed. No prior films are available this time for comparison. The lung volume is decreased with over crowding pulmonary markings. The cardiomediastinal silhouette demonstrate to be unremarkable. The heart is not enlarged. The thoracic aorta is unremarkable. Costophrenic angles are sharp. No areas of consolidation or masses are seen. No evidence for pneumothorax. The gas pattern is nondiagnostic. No signs of ileus or obstruction. No free air under the diaphragm is noted. No abnormal calcifications are seen. The bone windows demonstrate degenerative changes both hip joints. IMPRESSION: NONDIAGNOSTIC GAS PATTERN. NO SIGNS OF OBSTRUCTION OR ILEUS. NO ACUTE CARDIOPULMONARY DISEASE SEEN. Electronically signed by: Gabe Montana MD 10/29/2020 11:50 PM SUBGRADE TESTER
[2020-10-30] MEDS ORDERED: AZITHROMYCIN 250 MG TAB PO ONE (00:28)
--- NOTE | 2020-10-30 00:47 | ED.PDOC ---
History of Present Illness - General Chief Complaint: General Stated Complaint: bumps all over Time Seen by Provider: 10/29/20 23:10 Source: patient Exam Limitations: no limitations - History of Present Illness Initial Comments: The patient is a 50-year-old male presented emergency room with 2 days of sore throat, cough, body aches as well as some intermittent nausea and vomiting. He has had a mild diffuse rash as well. Mild runny nose. He has already had coronavirus. He has maybe had a fever. No shortness of breath but again he does have a cough. Timing/Duration: other - 2 days Severity: moderate Improving Factors: nothing Worsening Factors: nothing Associated Symptoms: cough, malaise, nausea/vomiting Allergies/Adverse Reactions: Allergies Acetaminophen Allergy (Verified 10/01/20 07:01) Penicillin G Allergy (Verified 10/01/20 07:01) Home Medications: Ambulatory Orders Quetiapine Fumarate [Seroquel] 400 mg PO BID 06/09/15 Metformin HCl [Metformin Hydrochloride E] 500 mg PO DAILY 03/06/16 DULoxetine HCL [Cymbalta] 90 mg PO DAILY 10/01/20 Gabapentin [Neurontin] 100 mg PO DAILY 10/01/20 Gabapentin [Neurontin] 200 mg PO BEDTIME 10/01/20 Glipizide 10 mg PO DAILY 10/01/20 Losartan Potassium 50 mg PO DAILY 10/01/20 Pantoprazole Sodium [Protonix] 40 mg PO DAILY 10/01/20 SITagliptin [Januvia] 50 mg PO DAILY 10/01/20 Simvastatin [Zocor] 40 mg PO BEDTIME 10/01/20 Temazepam [Restoril] 30 mg PO BEDTIME 10/01/20 Travoprost 0.004 % BOTH_EYES BEDTIME 10/01/20 Triamcinolone 0.5% Cream [Kenalog 0.5% Cream] 0.5 % TOP BID PRN 10/01/20 Albuterol Inhaler [Ventolin Hfa Inhaler] 2 puff INH RTQ4 inh 10/07/20 Albuterol Inhaler [Ventolin Hfa Inhaler] 2 puff INH RTQ4 PRN inh 10/07/20 Azithromycin Tab [Zithromax Tab] 250 mg PO QD #4 tab 10/07/20 Bifidobacterium Infantis [Align] 4 mg PO BID cap 10/07/20 Cefdinir 300 mg PO BID #14 capsule 10/07/20 Dexamethasone Tab [Decadron Tab] 4 mg PO DAILY #7 tab 10/07/20 guaiFENesin ER TAB [Mucinex Tab] 600 mg PO BID tab 10/07/20 Azithromycin 500 mg PO DAILY #5 tab 10/30/20 Ondansetron Odt [Zofran ODT] 4 mg PO Q8HR PRN #5 tab 10/30/20 Review of Systems - Review of Systems Constitutional: States: malaise EENTM: States: throat pain Respiratory: States: cough Cardiology: States: no symptoms reported Gastrointestinal/Abdominal: States: nausea, vomiting Genitourinary: States: no symptoms reported Musculoskeletal: States: see HPI Skin: States: see HPI Neurological: States: no symptoms reported Endocrine: States: no symptoms reported All other Systems: No Change from Baseline Past Medical History (General) - Patient Medical History Hx Seizures: No Hx Stroke: No Hx Dementia: - unknown Hx Asthma: Yes Hx of COPD: No Hx Cardiac Disorders: Yes Hx Congestive Heart Failure: No Hx Pacemaker: No Hx Hypertension: Yes Hx Thyroid Disease: - unknown Hx Diabetes: Yes Hx Gastroesophageal Reflux: Yes - unknown Hx Renal Disease: - unknown Hx Cancer: - unknown Hx of HIV: - unknown Hx Hepatitis C: - unknown Hx MRSA: No - Vaccination History Hx Tetanus, Diphtheria Vaccination: No Hx Influenza Vaccination: No Hx Pneumococcal Vaccination: No - Social History Hx Tobacco Use: No Hx Chewing Tobacco Use: No Hx Alcohol Use: Yes Hx Substance Use: Yes Hx Substance Use Treatment: - unknown Hx Depression: Yes Hx Physical Abuse: No Hx Emotional Abuse: No Hx Suspected Abuse: No Family Medical History - Family History Father Living Status: Still Living Hx Family Diabetes: Yes Physical Exam - Physical Exam General Appearance: Alert, Comfortable, No apparent distress Eye Exam: bilateral normal Ears, Nose, Throat: hearing grossly normal, pharyngeal erythema Neck: full range of motion, supple Respiratory: lungs clear, normal breath sounds, no respiratory distress, no accessory muscle use - Clearing cough Cardiovascular/Chest: normal peripheral pulses, regular rate, rhythm, no edema Peripheral Pulses: radial,right: 2+, radial,left: 2+ Gastrointestinal/Abdominal: non tender, soft Rectal Exam: deferred Back Exam: no CVA tenderness, no vertebral tenderness Extremity: normal range of motion, non-tender, normal inspection, no pedal edema, normal capillary refill Neurologic: 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 This is most likely due to strep pharyngitis. He has tested positive for it here today. He tested negative for flu. He has been started on a azithromycin will be written for 5 days of it. He will also be written for 5 days of oral Zofran. He needs to keep himself well-hydrated. Motrin can be used for any low-grade fevers and body aches. He needs to maintain a bland diet. The heat rash should resolve on its own without further intervention. ER warnings are given. Chest x-ray shows no acute pathology. Laboratory Tests 10/29/20 10/29/20 10/29/20 00:11 00:35 23:24 WBC RBC Hgb Hct MCV MCH MCHC RDW Plt Count MPV Absolute Neuts (auto) Absolute Lymphs (auto) Absolute Monos (auto) Absolute Eos (auto) Absolute Basos (auto) Neutrophils % Lymphocytes % Monocytes % Eosinophils % Basophils % Sodium 139 Potassium 3.7 Chloride 105 Carbon Dioxide 25 Anion Gap 12.7 BUN 12 Creatinine 0.93 BUN/Creatinine Ratio 12.9 Random Glucose 268 H Serum Osmolality 286.7 Lactic Acid Calcium 8.7 Magnesium 2.1 Total Bilirubin 0.4 AST 28 ALT 42 Alkaline Phosphatase 70 Creatine Kinase 133 CK-MB (CK-2) 2.2 CK-MB (CK-2) % Not Reportable Troponin I < 0.02 B-Natriuretic Peptide 15.5 Serum Total Protein 6.6 Albumin 4.3 Globulin 2.3 Albumin/Globulin Ratio 1.9 Amylase 22 L Lipase 24 Urine Color Yellow Urine Appearance Clear Urine pH 6.5 Ur Specific [place] 1.020 Urine Protein Negative Urine Glucose (UA) 500 H Urine Ketones Negative Urine Blood Negative Urine Nitrite Negative Urine Bilirubin Negative Urine Urobilinogen 0.2 Ur Leukocyte Esterase Negative Urine RBC 0 Urine WBC 0 Ur Epithelial Cells 0 Urine Bacteria 0 Group A Strep Rapid Positive H 10/29/20 10/29/20 23:24 23:24 WBC 6.0 RBC 4.61 L Hgb 12.6 L Hct 38.4 L MCV 83.4 MCH 27.2 MCHC 32.6 L RDW 15.2 H Plt Count 198 MPV 8.8 Absolute Neuts (auto) 3.50 Absolute Lymphs (auto) 1.80 Absolute Monos (auto) 0.40 Absolute Eos (auto) 0.30 Absolute Basos (auto) 0.10 Neutrophils % 57.2 Lymphocytes % 29.3 Monocytes % 7.3 Eosinophils % 5.0 Basophils % 1.2 Sodium Potassium Chloride Carbon Dioxide Anion Gap BUN Creatinine BUN/Creatinine Ratio Random Glucose Serum Osmolality Lactic Acid 1.2 Calcium Magnesium Total Bilirubin AST ALT Alkaline Phosphatase Creatine Kinase CK-MB (CK-2) CK-MB (CK-2) % Troponin I B-Natriuretic Peptide Serum Total Protein Albumin Globulin Albumin/Globulin Ratio Amylase Lipase Urine Color Urine Appearance Urine pH Ur Specific [place] Urine Protein Urine Glucose (UA) Urine Ketones Urine Blood Urine Nitrite Urine Bilirubin Urine Urobilinogen Ur Leukocyte Esterase Urine RBC Urine WBC Ur Epithelial Cells Urine Bacteria Group A Strep Rapid Departure - Departure Clinical Impression: Streptococcal pharyngitis, Heat rash Disposition: Discharge to Home or Self Care Condition: Fair Departure Forms: ED Discharge - Pt. Copy, Patient Portal Self Enrollment Diet: bland diet Activity: increase activity as tolerated Referrals: Hodan Hubbard FNP [Primary Care Provider] - 1-2 Weeks Prescriptions: Ondansetron Odt [Zofran ODT] 4 mg PO Q8HR PRN #5 tab PRN Reason: Nausea--Moderate Azithromycin 500 mg PO DAILY #5 tab Home Medications: Ambulatory Orders Quetiapine Fumarate [Seroquel] 400 mg PO BID 06/09/15 Metformin HCl [Metformin Hydrochloride E] 500 mg PO DAILY 03/06/16 DULoxetine HCL [Cymbalta] 90 mg PO DAILY 10/01/20 Gabapentin [Neurontin] 100 mg PO DAILY 10/01/20 Gabapentin [Neurontin] 200 mg PO BEDTIME 10/01/20 Glipizide 10 mg PO DAILY 10/01/20 Losartan Potassium 50 mg PO DAILY 10/01/20 Pantoprazole Sodium [Protonix] 40 mg PO DAILY 10/01/20 SITagliptin [Januvia] 50 mg PO DAILY 10/01/20 Simvastatin [Zocor] 40 mg PO BEDTIME 10/01/20 Temazepam [Restoril] 30 mg PO BEDTIME 10/01/20 Travoprost 0.004 % BOTH_EYES BEDTIME 10/01/20 Triamcinolone 0.5% Cream [Kenalog 0.5% Cream] 0.5 % TOP BID PRN 10/01/20 Albuterol Inhaler [Ventolin Hfa Inhaler] 2 puff INH RTQ4 inh 10/07/20 Albuterol Inhaler [Ventolin Hfa Inhaler] 2 puff INH RTQ4 PRN inh 10/07/20 Azithromycin Tab [Zithromax Tab] 250 mg PO QD #4 tab 10/07/20 Bifidobacterium Infantis [Align] 4 mg PO BID cap 10/07/20 Cefdinir 300 mg PO BID #14 capsule 10/07/20 Dexamethasone Tab [Decadron Tab] 4 mg PO DAILY #7 tab 10/07/20 guaiFENesin ER TAB [Mucinex Tab] 600 mg PO BID tab 10/07/20 Azithromycin 500 mg PO DAILY #5 tab 10/30/20 Ondansetron Odt [Zofran ODT] 4 mg PO Q8HR PRN #5 tab 10/30/20 Additional Instructions: The patient is a 50-year-old male presenting with streptococcal pharyngitis and multiple symptoms with that. He has been placed on oral azithromycin for treatment of it as well as Zofran to control any nausea or vomiting. Heat rash should resolve on its own. Keep well-hydrated and maintain a bland diet. Keep follow-up with your primary care doctor.
[2020-10-30 01:01] VITALS: BP 132/74; O2SAT 98
[2020-10-30 01:18] VITALS: TEMP 98.4
== END 2020-10-30 01:19 | disposition home or self-care (01) ==
LOC: ER 22:36
DX: J02.0 Streptococcal pharyngitis (principal); L74.0 Miliaria rubra; F32.9 Major depressive disorder, single episode, unspecified; I51.9 Heart disease, unspecified; I10 Essential (primary) hypertension; E11.9 Type 2 diabetes mellitus without complications; K21.9 Gastro-esophageal reflux disease without esophagitis; J45.909 Unspecified asthma, uncomplicated; Z86.16 Personal history of COVID-19; Z79.899 Other long term (current) drug therapy; Z79.84 Long term (current) use of oral hypoglycemic drugs; Z88.6 Allergy status to analgesic agent; Z88.0 Allergy status to penicillin
CPT/HCPCS: 74019; 80053; 81001; 82150; 82550; 82553; 83605; 83690; 83735; 83880; 84484; 85025; 87040; 87502; 87880; J7030; Q0144

== ENCOUNTER 2020-11-03 23:43 | Emergency (ER) | payer MEDICARE, MEDICAID, OTHER ==
--- NOTE | 2020-11-03 23:50 | ED.PDOC ---
History of Present Illness - General Time Seen by Provider: 11/03/20 23:43 Source: patient, RN notes reviewed, Vital Signs reviewed, EMS notes reviewed, EMS, old records Exam Limitations: no limitations - History of Present Illness Initial Comments: 50 yo male with developmental disorder and cognititive delay presents to the ER with 2 days of chest pain. Pain is constant, left sided, radiates to left arm. Associated with shortness of breath and cough. pain worse with palpation and deep breaths. Was dx with strep 4 days ago. denies n/v/d. patient notes he fell on week ago and did landed on his left side of his chest. Did not hit his head. no loc. tripped on stairs. Timing/Duration: days - 2 Severity/Quality: burning, sharp Chest Pain Radiation: arms - left Activities at Onset: none Improving Factors: nothing Worsening Factors: other - breathing, palpation Nitro Today/Relief: no nitro taken today Aspirin Treatment Today: no aspirin today Associated Symptoms: shortness of breath Allergies/Adverse Reactions: Allergies Acetaminophen Allergy (Verified 11/03/20 23:51) Penicillin G Allergy (Verified 11/03/20 23:51) Home Medications: Ambulatory Orders Quetiapine Fumarate [Seroquel] 400 mg PO BID 06/09/15 Metformin HCl [Metformin Hydrochloride E] 500 mg PO DAILY 03/06/16 DULoxetine HCL [Cymbalta] 90 mg PO DAILY 10/01/20 Gabapentin [Neurontin] 100 mg PO DAILY 10/01/20 Gabapentin [Neurontin] 200 mg PO BEDTIME 10/01/20 Glipizide 10 mg PO DAILY 10/01/20 Losartan Potassium 50 mg PO DAILY 10/01/20 Pantoprazole Sodium [Protonix] 40 mg PO DAILY 10/01/20 SITagliptin [Januvia] 50 mg PO DAILY 10/01/20 Simvastatin [Zocor] 40 mg PO BEDTIME 10/01/20 Temazepam [Restoril] 30 mg PO BEDTIME 10/01/20 Travoprost 0.004 % BOTH_EYES BEDTIME 10/01/20 Triamcinolone 0.5% Cream [Kenalog 0.5% Cream] 0.5 % TOP BID PRN 10/01/20 Albuterol Inhaler [Ventolin Hfa Inhaler] 2 puff INH RTQ4 inh 10/07/20 Albuterol Inhaler [Ventolin Hfa Inhaler] 2 puff INH RTQ4 PRN inh 10/07/20 Azithromycin Tab [Zithromax Tab] 250 mg PO QD #4 tab 10/07/20 Bifidobacterium Infantis [Align] 4 mg PO BID cap 10/07/20 Cefdinir 300 mg PO BID #14 capsule 10/07/20 Dexamethasone Tab [Decadron Tab] 4 mg PO DAILY #7 tab 10/07/20 guaiFENesin ER TAB [Mucinex Tab] 600 mg PO BID tab 10/07/20 Azithromycin 500 mg PO DAILY #5 tab 10/30/20 Ondansetron Odt [Zofran ODT] 4 mg PO Q8HR PRN #5 tab 10/30/20 Benzonatate 200 mg PO TID 11/04/20 Ibuprofen 600 mg PO TID PRN #30 tab 11/04/20 Ondansetron HCl [Zofran] 4 mg PO Q8H PRN 11/04/20 Review of Systems - Review of Systems Constitutional: Denies: chills, fever EENTM: Denies: blurred vision, throat pain Respiratory: States: cough, short of breath Cardiology: States: chest pain. Denies: palpitations, syncope Gastrointestinal/Abdominal: Denies: abdominal pain, diarrhea, nausea, vomiting Genitourinary: Denies: frequency Musculoskeletal: Denies: back pain, muscle pain Skin: Denies: rash Neurological: Denies: headache, numbness Endocrine: Denies: unexplained weight loss Hematologic/Lymphatic: Denies: blood clots, easy bleeding, easy bruising Past Medical History (General) - Patient Medical History Hx Seizures: No Hx Stroke: No Hx Dementia: No Hx Asthma: Yes Hx of COPD: No Hx Cardiac Disorders: Yes Hx Congestive Heart Failure: No Hx Pacemaker: No Hx Hypertension: Yes Hx Thyroid Disease: Yes Hx Diabetes: Yes Hx Gastroesophageal Reflux: Yes - yes ulcers Hx Cancer: No Hx of HIV: No Hx Hepatitis C: - unknown Hx MRSA: No - Vaccination History Hx Tetanus, Diphtheria Vaccination: No Hx Influenza Vaccination: No Hx Pneumococcal Vaccination: No - Social History Hx Tobacco Use: No Hx Chewing Tobacco Use: No Hx Alcohol Use: Yes Hx Substance Use: Yes Hx Substance Use Treatment: - unknown Hx Depression: Yes Hx Physical Abuse: No Hx Emotional Abuse: No Hx Suspected Abuse: No Family Medical History - Family History Father Living Status: Still Living Hx Family Diabetes: Yes Physical Exam - Physical Exam General Appearance: Alert, Comfortable, No apparent distress, Well Developed, Well Groomed, Well Hydrated, Well Nourished Eyes, Ears, Nose, Throat Exam: normal ENT inspection Neck: non-tender, full range of motion, supple, normal inspection Respiratory: lungs clear, normal breath sounds, no respiratory distress, no accessory muscle use, other - chest tender to palpation on frontal left upper chest Cardiovascular/Chest: normal peripheral pulses, regular rate, rhythm, no edema, no gallop, no JVD, no murmur Peripheral Pulses: radial,right: 2+, radial,left: 2+, dorsalis pedis,right: 2+, dorsalis pedis,left: 2+ Gastrointestinal/Abdominal: normal bowel sounds, non tender, soft, no organomegaly Rectal Exam: deferred Extremity: normal range of motion, non-tender, normal inspection, no pedal edema, no calf tenderness, normal capillary refill Neurologic: no motor/sensory deficits, alert, normal mood/affect, oriented x 3 Skin Exam: normal color, warm/dry Progress - Progress Progress: 11/03/20 23:59 cardiac score 3 11/04/20 02:13 partial ddx: pneumonia, cad, URI, muscle strain, others considered. patient given GI cocktail and toradol. Pain improved. The data reviewed when caring for this patient included: nurse notes, prior records, etc. The history and assessments from nurses notes were reviewed and considered, and the patient's home medication list was also reviewed and considered. My assessment and the results of testing completed here in the ED were discussed with the patient. All questions were answered, and he express understanding of my assessment and the plan. he have been instructed to return if their symptoms worsen, and have been asked to follow up with their primary care physician to recheck today's presenting complaint. Strict return precautions given. I have reviewed medication, benefits, alternatives and side effects. Alessia Wise DO #[id number] - Results/Orders Results/Orders: 11/03/20 23:50 EKG Assessment ONCE EKG STAT Laboratory Results WBC 4.8 K/mm3 (4.8-10.8) 11/03/20 23:45 RBC 4.27 M/mm3 (4.70-6.10) L 11/03/20 23:45 Hgb 11.6 gm/dL (14.0-18.0) L 11/03/20 23:45 Hct 35.7 % (42.0-52.0) L 11/03/20 23:45 MCV 83.7 fl (80.0-94.0) 11/03/20 23:45 MCH 27.1 pg (27.0-31.0) 11/03/20 23:45 MCHC 32.4 g/dL (33.0-37.0) L 11/03/20 23:45 RDW 15.6 % (11.5-14.5) H 11/03/20 23:45 Plt Count 228 K/mm3 (130-400) 11/03/20 23:45 MPV 8.9 fl (7.40-10.4) 11/03/20 23:45 Absolute Neuts (auto) 2.70 K/uL (1.8-6.8) 11/03/20 23:45 Absolute Lymphs (auto) 1.50 K/uL (1.0-3.4) 11/03/20 23:45 Absolute Monos (auto) 0.40 K/uL (0.2-0.8) 11/03/20 23:45 Absolute Eos (auto) 0.20 K/uL (0.0-0.4) 11/03/20 23:45 Absolute Basos (auto) 0.00 K/uL (0.0-0.1) 11/03/20 23:45 Neutrophils % 56.9 % (42.0-78.0) 11/03/20 23:45 Lymphocytes % 30.8 % (20.0-50.0) 11/03/20 23:45 Monocytes % 8.2 % (2.0-9.0) 11/03/20 23:45 Eosinophils % 3.4 % (1.0-5.0) 11/03/20 23:45 Basophils % 0.7 % (0.0-2.0) 11/03/20 23:45 PT 9.4 SECONDS (9.0-10.9) 11/03/20 23:45 INR < 1.00 (0.9-1.15) 11/03/20 23:45 PTT (SP) 22.6 SECONDS (21.8-31.6) 11/03/20 23:45 Sodium 138 mmol/L (135-145) 11/03/20 23:45 Potassium 3.9 mmol/L (3.6-5.0) 11/03/20 23:45 Chloride 104 mmol/L (101-111) 11/03/20 23:45 Carbon Dioxide 27 mmol/L (21-31) 11/03/20 23:45 Anion Gap 10.9 (12-18) L 11/03/20 23:45 BUN 8 mg/dL (7-18) 11/03/20 23:45 Creatinine 0.91 mg/dL (0.6-1.3) 11/03/20 23:45 BUN/Creatinine Ratio 8.8 (10-20) L 11/03/20 23:45 Random Glucose 215 mg/dL (70-105) H 11/03/20 23:45 Serum Osmolality 280.5 mOsm/L (275-295) 11/03/20 23:45 Calcium 8.9 mg/dL (8.4-10.2) 11/03/20 23:45 Magnesium 2.0 mg/dL (1.8-2.5) 11/03/20 23:45 Total Bilirubin 0.3 mg/dL (0.2-1.0) 11/03/20 23:45 AST 22 IU/L (10-42) 11/03/20 23:45 ALT 25 IU/L (10-60) 11/03/20 23:45 Alkaline Phosphatase 57 IU/L (42-121) 11/03/20 23:45 Troponin I < 0.02 ng/mL (0.01-0.05) 11/04/20 01:38 B-Natriuretic Peptide < 15.0 pg/ml (0-100) 11/03/20 23:45 Serum Total Protein 6.3 gm/dL (6.4-8.2) L 11/03/20 23:45 Albumin 4.0 g/dl (3.2-5.5) 11/03/20 23:45 Globulin 2.3 gm/dL (2.3-3.5) 11/03/20 23:45 Albumin/Globulin Ratio 1.7 (1.1-1.9) 11/03/20 23:45 - EKG/XRAY/CT EKG: Sinus - hr84 Comments: normal intervals, no acute ischemic changes. XRAY: chest - no acute cardiopulmonary pathology Departure - Departure Clinical Impression: Chest pain Qualifiers: Chest pain type: unspecified Qualified Code(s): R07.9 - Chest pain, unspecified Fall Qualifiers: Encounter type: initial encounter Qualified Code(s): W19.XXXA - Unspecified fall, initial encounter Time of Disposition: 02:12 Disposition: Discharge to Home or Self Care Condition: Fair Instructions: Pleuritic Chest Pain, Chest Pain Diet: diabetic diet Activity: increase activity as tolerated Referrals: Hodan Hubbard FNP [Primary Care Provider] - 1-2 Days Prescriptions: Ibuprofen 600 mg PO TID PRN #30 tab PRN Reason: Pain Home Medications: Ambulatory Orders Quetiapine Fumarate [Seroquel] 400 mg PO BID 06/09/15 Metformin HCl [Metformin Hydrochloride E] 500 mg PO DAILY 03/06/16 DULoxetine HCL [Cymbalta] 90 mg PO DAILY 10/01/20 Gabapentin [Neurontin] 100 mg PO DAILY 10/01/20 Gabapentin [Neurontin] 200 mg PO BEDTIME 10/01/20 Glipizide 10 mg PO DAILY 10/01/20 Losartan Potassium 50 mg PO DAILY 10/01/20 Pantoprazole Sodium [Protonix] 40 mg PO DAILY 10/01/20 SITagliptin [Januvia] 50 mg PO DAILY 10/01/20 Simvastatin [Zocor] 40 mg PO BEDTIME 10/01/20 Temazepam [Restoril] 30 mg PO BEDTIME 10/01/20 Travoprost 0.004 % BOTH_EYES BEDTIME 10/01/20 Triamcinolone 0.5% Cream [Kenalog 0.5% Cream] 0.5 % TOP BID PRN 10/01/20 Albuterol Inhaler [Ventolin Hfa Inhaler] 2 puff INH RTQ4 inh 10/07/20 Albuterol Inhaler [Ventolin Hfa Inhaler] 2 puff INH RTQ4 PRN inh 10/07/20 Azithromycin Tab [Zithromax Tab] 250 mg PO QD #4 tab 10/07/20 Bifidobacterium Infantis [Align] 4 mg PO BID cap 10/07/20 Cefdinir 300 mg PO BID #14 capsule 10/07/20 Dexamethasone Tab [Decadron Tab] 4 mg PO DAILY #7 tab 10/07/20 guaiFENesin ER TAB [Mucinex Tab] 600 mg PO BID tab 10/07/20 Azithromycin 500 mg PO DAILY #5 tab 10/30/20 Ondansetron Odt [Zofran ODT] 4 mg PO Q8HR PRN #5 tab 10/30/20 Benzonatate 200 mg PO TID 11/04/20 Ibuprofen 600 mg PO TID PRN #30 tab 11/04/20 Ondansetron HCl [Zofran] 4 mg PO Q8H PRN 11/04/20
--- NOTE | 2020-11-04 00:20 | RAD ---
EXAM DESCRIPTION: Chest,1 View CLINICAL HISTORY: 50 years Male, cp COMPARISON: None TECHNIQUE: Single AP chest radiograph. FINDINGS: Clear lungs. No pneumothorax or pleural effusion. Normal cardiomediastinal contour. Normal osseous structures. IMPRESSION: 1. No acute cardiopulmonary process. Electronically signed by: Jose Rafael Laguerre MD 11/04/2020 12:19 AM [facility]
[2020-11-04] MEDS ORDERED: ALUM & MAG HYDROX-SIMETHICONE 30 ML, LIDOCAINE VISCOUS 2% 15 ML PO ONE ×2 (00:28)
[2020-11-04] MEDS ORDERED: KETOROLAC TROMETHAMINE INJ 30 MG/ML VIAL IV ONE (00:29)
[2020-11-04 02:22] VITALS: BP 132/80; TEMP 98; O2SAT 97
== END 2020-11-04 02:23 | disposition home or self-care (01) ==
LOC: ER 23:43
DX: R07.9 Chest pain, unspecified (principal); R05 Cough; R06.02 Shortness of breath; R41.841 Cognitive communication deficit; K21.9 Gastro-esophageal reflux disease without esophagitis; F32.9 Major depressive disorder, single episode, unspecified; I10 Essential (primary) hypertension; E07.9 Disorder of thyroid, unspecified; I51.9 Heart disease, unspecified; J45.909 Unspecified asthma, uncomplicated; Z79.899 Other long term (current) drug therapy; Z79.84 Long term (current) use of oral hypoglycemic drugs; Z88.6 Allergy status to analgesic agent; Z88.0 Allergy status to penicillin
CPT/HCPCS: 71045; 80053; 83735; 83880; 84484; 85025; 85610; 85730; 93005; J1885

== ENCOUNTER → 2020-11-09 | Outpatient (CLI) | payer MEDICARE, MEDICAID, OTHER | LOC: YCFC.O 14:05 | PROVIDERS: ATTEND Family Medicine | DX: R00.0 Tachycardia, unspecified (principal) ==